=== PATIENT | female | born 1945 | race Caucasian/White ===

== ENCOUNTER 2017-09-09 11:46 | Inpatient (IN) | payer MEDICARE, OTHER ==
[2017-09-09] MEDS ORDERED: Albuterol/Ipratropium 3.0-0.5 MG/3 ML Neb Soln NEB ONE ×2 (11:49→11:53)
--- NOTE | 2017-09-09 11:56 | EDM.PDOC ---
ED HPI GENERAL MEDICAL PROBLEM - General Stated Complaint: AMB Time Seen by Provider: 09/09/17 11:50 Source of Information: Reports: Patient, EMS History Limitations: Reports: No Limitations - History of Present Illness INITIAL COMMENTS - FREE TEXT/NARRATIVE: HISTORY AND PHYSICAL: History of present illness: Yu is a 72-year-old female presents via EMS with complaint of shortness of breath since this morning. Patient has had intermittent nausea. Patient was recently in my months for a routine follow-up and had a malfunctioning pacemaker that required readjusting the settings. She states she has been staying with her daughter while she has been recovering. Denies fever chills or chest pain. Patient denies vomiting, diarrhea, abdominal pain, constipation. Past medical history significant for hypertension diabetes currently vascular disease on a pacemaker. Review of systems: As per history of present illness and below otherwise all systems reviewed and negative. Past medical history: As per history of present illness and as reviewed below otherwise noncontributory. Surgical history: As per history of present illness and as reviewed below otherwise noncontributory. Social history: No reported history of drug or alcohol abuse. Family history: As per history of present illness and as reviewed below otherwise noncontributory. Physical exam: General: Well-developed, well-nourished 72-year-old female. Patient is alert and oriented. Nontoxic appearing and in no acute distress. HEENT: Atraumatic, normocephalic, pupils reactive, negative for conjunctival pallor or scleral icterus, mucous membranes moist, throat clear, neck supple, nontender, trachea midline. Lungs: Clear to auscultation, breath sounds equal bilaterally, chest nontender. Heart: S1S2, regular, negative for clicks, rubs, or JVD. Abdomen: Soft, nondistended, nontender. Negative for masses or hepatosplenomegaly. Negative for costovertebral tenderness. Pelvis: Stable nontender. Genitourinary: Deferred. Rectal: Deferred. Extremities: Atraumatic, negative for cords or calf pain. Neurovascular unremarkable. Neuro: Awake, alert, oriented. Cranial nerves II through XII unremarkable. Cerebellum unremarkable. Motor and sensory unremarkable throughout. Exam nonfocal. Notes: Patient arrived alert and oriented via EMS. We will do a cardiac workup due to patient's past medical history. Patient complains of a painful pressure sore. The right gluteus erythematous, she does have a small 1 cm open sore. She has some yellow discharge noted on the pad that appears to be coming from the sore. We'll bring this to Dr. Tobar' s attention. D-dimer is elevated, patient is currently anticoagulated on Eliquis. Discussed with Dr. Tobar about admission, he is agreeable. He is aware that d-dimer is elevated, CTA is being held due to her creatinine and coagulation status. Patient is aware and agreeable. Diagnostics: []CBC, CMP, troponin, d-dimer, BNP, EKG, chest x-ray Therapeutics: [Saline lock and DuoNeb] Impression: CHF exacerbation. Plan: [Observation admission with telemetry to [facility]] Definitive disposition and diagnosis as appropriate pending reevaluation and review of above. Onset: Today Onset Date: 09/09/17 Duration: Hour(s): Location: Reports: Chest - Related Data Allergies Allergy/AdvReac Type Severity Reaction Status Date / Time No Known Allergies Allergy Verified 09/09/17 12:09 Home Meds: Home Meds Acetaminophen [Tylenol Extra Strength] 1,000 mg PO Q6H PRN 09/09/17 [History] Amiodarone [Cordarone] 200 mg PO DAILY 09/09/17 [History] Apixaban [Eliquis] 5 mg PO BID 09/09/17 [History] Bumetanide [Bumex] 2 mg PO BID 09/09/17 [History] Bumetanide [Bumex] 2 mg PO DAILY PRN 09/09/17 [History] Insulin Aspart [Novolog Flexpen] 5 unit SUBCUT TIDMEALS 09/09/17 [History] Insulin Detemir [Levemir Flextouch] 10 unit SUBCUT BEDTIME 09/09/17 [History] Metoprolol Succinate [Toprol XL 50mg] 50 mg PO DAILY 09/09/17 [History] Mexiletine 200 mg PO BID 09/09/17 [History] Nitroglycerin 0.4 mg SL .EVERY 5 MINUTES PRN MDD 3 09/09/17 [History] Spironolactone [Aldactone] 12.5 mg PO DAILY 09/09/17 [History] atorvaSTATin [Lipitor] 40 mg PO BEDTIME 09/09/17 [History] ED ROS GENERAL - Review of Systems Review Of Systems: ROS reveals no pertinent complaints other than HPI. ED EXAM, GENERAL - Physical Exam Exam: See Below (See dictation) EKG INTERPRETATION EKG Date: 09/09/17 Time: 11:51 Rhythm: Other (Ventricular paced rhythm) Comparison: NA - No Prior EKG Course - Vital Signs Last Recorded V/S: Last Vital Signs Temp 35.9 C 09/09/17 11:50 Pulse 91 09/09/17 11:50 Resp 16 09/09/17 11:50 BP 109/65 09/09/17 11:50 Pulse Ox 100 09/09/17 11:50 - Orders/Labs/Meds Orders: Active Orders 24 hr Category Date Time Status Admission Status [Patient Status] [ADT] Stat ADT 09/09/17 12:41 Ordered EKG Documentation Completion [RC] STAT Care 09/09/17 11:48 Active RT Aerosol Therapy [RC] ASDIRECTED Care 09/09/17 11:49 Active RT Aerosol Therapy [RC] ASDIRECTED Care 09/09/17 11:53 Inactive Chest 1V Frontal [CR] Stat Exams 09/09/17 11:49 Taken Lung Vent & Perf Quantative [NM] Stat Exams 09/09/17 12:31 Ordered Labs: Laboratory Tests 09/09/17 09/09/17 09/09/17 Range/Units 11:50 11:50 11:50 WBC 10.10 (4.0-11.0) K/uL RBC 5.88 (4.30-5.90) M/uL Hgb 14.4 (12.0-16.0) g/dL Hct 45.0 (36.0-46.0) % MCV 76.5 L (80.0-98.0) fL MCH 24.5 L (27.0-32.0) pg MCHC 32.0 (31.0-37.0) g/dL RDW Std Deviation 55.2 (28.0-62.0) fl RDW Coeff of Lata 21 H (11.0-15.0) % Plt Count 265 (150-400) K/uL MPV 9.90 (7.40-12.00) fL Neut % (Auto) 72.6 (48.0-80.0) % Lymph % (Auto) 15.6 L (16.0-40.0) % [place] % (Auto) 11.0 (0.0-15.0) % Eos % (Auto) 0.6 (0.0-7.0) % Baso % (Auto) 0.2 (0.0-1.5) % Neut # (Auto) 7.3 H (1.4-5.7) K/uL Lymph # (Auto) 1.6 (0.6-2.4) K/uL [place] # (Auto) 1.1 H (0.0-0.8) K/uL Eos # (Auto) 0.1 (0.0-0.7) K/uL Baso # (Auto) 0.0 (0.0-0.1) K/uL Nucleated RBC % 0.0 /100WBC Nucleated RBCs # 0 K/uL D-Dimer, Quantitative 1.11 H (0.0-0.52) mg/LFEU Sodium 140 (136-145) mmol/L Potassium 3.3 L (3.5-5.1) mmol/L Chloride 100 (98-107) mmol/L Carbon Dioxide 21.5 (21.0-32.0) mmol/L BUN 58 H (7.0-18.0) mg/dL Creatinine 3.5 H (0.6-1.0) mg/dL Est Cr Clr Drug Dosing 13.46 mL/min Estimated GFR (MDRD) 12.9 ml/min Glucose 94 (74-106) mg/dL Calcium 9.2 (8.5-10.1) mg/dL Total Bilirubin 0.8 (0.2-1.0) mg/dL AST 38 H (15-37) IU/L ALT 42 (14-63) IU/L Alkaline Phosphatase 87 (46-116) U/L Troponin I < 0.050 (0.000-0.056) ng/mL B-Natriuretic Peptide (<100) PG/ML Total Protein 6.7 (6.4-8.2) g/dL Albumin 3.1 L (3.4-5.0) g/dL Globulin 3.6 H (2.0-3.5) g/dL Albumin/Globulin Ratio 0.9 L (1.3-2.8) 09/09/17 Range/Units 11:50 WBC (4.0-11.0) K/uL RBC (4.30-5.90) M/uL Hgb (12.0-16.0) g/dL Hct (36.0-46.0) % MCV (80.0-98.0) fL MCH (27.0-32.0) pg MCHC (31.0-37.0) g/dL RDW Std Deviation (28.0-62.0) fl RDW Coeff of Lata (11.0-15.0) % Plt Count (150-400) K/uL MPV (7.40-12.00) fL Neut % (Auto) (48.0-80.0) % Lymph % (Auto) (16.0-40.0) % [place] % (Auto) (0.0-15.0) % Eos % (Auto) (0.0-7.0) % Baso % (Auto) (0.0-1.5) % Neut # (Auto) (1.4-5.7) K/uL Lymph # (Auto) (0.6-2.4) K/uL [place] # (Auto) (0.0-0.8) K/uL Eos # (Auto) (0.0-0.7) K/uL Baso # (Auto) (0.0-0.1) K/uL Nucleated RBC % /100WBC Nucleated RBCs # K/uL D-Dimer, Quantitative (0.0-0.52) mg/LFEU Sodium (136-145) mmol/L Potassium (3.5-5.1) mmol/L Chloride (98-107) mmol/L Carbon Dioxide (21.0-32.0) mmol/L BUN (7.0-18.0) mg/dL Creatinine (0.6-1.0) mg/dL Est Cr Clr Drug Dosing mL/min Estimated GFR (MDRD) ml/min Glucose (74-106) mg/dL Calcium (8.5-10.1) mg/dL Total Bilirubin (0.2-1.0) mg/dL AST (15-37) IU/L ALT (14-63) IU/L Alkaline Phosphatase (46-116) U/L Troponin I (0.000-0.056) ng/mL B-Natriuretic Peptide 2371 H (<100) PG/ML Total Protein (6.4-8.2) g/dL Albumin (3.4-5.0) g/dL Globulin (2.0-3.5) g/dL Albumin/Globulin Ratio (1.3-2.8) Meds: Medications Discontinued Medications Generic Name Dose Route Start Last Admin Trade Name Freq PRN Reason Stop Dose Admin Albuterol/Ipratropium 3 ml 09/09/17 11:49 09/09/17 12:16 Duoneb 3.0-0.5 Mg/3 Ml NEB 09/09/17 11:50 3 ml ONETIME ONE Administration Albuterol/Ipratropium 3 ml 09/09/17 11:53 09/09/17 12:40 Duoneb 3.0-0.5 Mg/3 Ml NEB 09/09/17 11:54 Not Given ONETIME ONE Departure - Departure Time of Disposition: 12:45 Disposition: Refer to Observation Clinical Impression: Congestive heart failure Qualifiers: Heart failure type: unspecified Heart failure chronicity: chronic Qualified Code(s): I50.9 - Heart failure, unspecified Referrals: PCP,None [Primary Care Provider] - - My Orders Last 24 Hours: My Active Orders 09/09/17 11:48 EKG Documentation Completion [RC] STAT 09/09/17 11:49 RT Aerosol Therapy [RC] ASDIRECTED Chest 1V Frontal [CR] Stat 09/09/17 12:31 Lung Vent & Perf Quantative [NM] Stat 09/09/17 12:41 Admission Status [Patient Status] [ADT] Stat - Assessment/Plan Last 24 Hours: My Active Orders 09/09/17 11:48 EKG Documentation Completion [RC] STAT 09/09/17 11:49 RT Aerosol Therapy [RC] ASDIRECTED Chest 1V Frontal [CR] Stat 09/09/17 12:31 Lung Vent & Perf Quantative [NM] Stat 09/09/17 12:41 Admission Status [Patient Status] [ADT] Stat
[2017-09-09 12:22] LABS: CHLORIDE,CL 100 mmol/L (98-107); SODIUM,NA 140 mmol/L (136-145)
[2017-09-09] MEDS ORDERED: Furosemide 40 MG/4 ML VIAL IVPUSH ONE (13:23)
[2017-09-09] MEDS ORDERED: Albuterol/Ipratropium 3.0-0.5 MG/3 ML Neb Soln NEB PRN (13:23)
[2017-09-09] MEDS ORDERED: Acetaminophen 325 MG Tab PO PRN (13:23)
[2017-09-09] MEDS ORDERED: Ondansetron 4 MG/2 ML SDV IVPUSH PRN (13:23)
--- NOTE | 2017-09-09 13:33 | PCM.HP ---
H&P History of Present Illness - General Admit Problem/Dx: Admission Diagnosis/Problem Admission Diagnosis/Problem Congestive heart failure - History of Present Illness Initial Comments - Free Text/Narative: 72 yo female with pmh of atrial fibrillation, CHF, CAD, with recent placement of pace/defibrillator who presents with several day history of shortness of breath. She reports she gets short of breath walking to the bathroom. She reports increased leg edema. She denies any fevers or chills. She denies any chest pain. - Related Data Allergies/Adverse Reactions: Allergies Allergy/AdvReac Type Severity Reaction Status Date / Time No Known Allergies Allergy Verified 09/09/17 12:09 Home Medications: Home Meds Acetaminophen [Tylenol Extra Strength] 1,000 mg PO Q6H PRN 09/09/17 [History] Amiodarone [Cordarone] 200 mg PO DAILY 09/09/17 [History] Apixaban [Eliquis] 5 mg PO BID 09/09/17 [History] Bumetanide [Bumex] 2 mg PO BID 09/09/17 [History] Bumetanide [Bumex] 2 mg PO DAILY PRN 09/09/17 [History] Insulin Aspart [Novolog Flexpen] 5 unit SUBCUT TIDMEALS 09/09/17 [History] Insulin Detemir [Levemir Flextouch] 10 unit SUBCUT BEDTIME 09/09/17 [History] Metoprolol Succinate [Toprol XL 50mg] 50 mg PO DAILY 09/09/17 [History] Mexiletine 200 mg PO BID 09/09/17 [History] Nitroglycerin 0.4 mg SL .EVERY 5 MINUTES PRN MDD 3 09/09/17 [History] Spironolactone [Aldactone] 12.5 mg PO DAILY 09/09/17 [History] atorvaSTATin [Lipitor] 40 mg PO BEDTIME 09/09/17 [History] Past Medical History Cardiovascular History: Reports: Heart Failure [employer] History: Reports: Psychiatric History: Reports: Anxiety Endocrine/Metabolic History: Reports: Diabetes, Type II Dermatologic History: Reports: Other (See Below) Other Dermatologic History: sore to bottom, painful to sit - Past Surgical History Cardiovascular Surgical History: Reports: Carotid Stents GI Surgical History: Reports: Cholecystectomy Social & Family History - Family History Family Medical History: Noncontributory Endocrine/Metabolic: Reports: Diabetes, type II Other Endocrine/Metabolic Family History: pt states mother had diabetes - Tobacco Use Smoking Status *Q: Never Smoker Second Hand Smoke Exposure: No - Caffeine Use Caffeine Use: Reports: None - Recreational Drug Use Recreational Drug Use: No H&P Review of Systems - Review of Systems: Review Of Systems: ROS reveals no pertinent complaints other than HPI. Exam - Exam Exam: See Below - Vital Signs Vital Signs: Last Vital Signs Temp 35.9 C 09/09/17 11:50 Pulse 91 09/09/17 11:50 Resp 16 09/09/17 11:50 BP 109/65 09/09/17 11:50 Pulse Ox 100 09/09/17 11:50 Weight: 112.037 kg - Exam General: Alert, Oriented Neck: Supple Lungs: Clear to Auscultation, Normal Respiratory Effort Cardiovascular: Regular Rate, Regular Rhythm GI/Abdominal Exam: Soft, Non-Tender Extremities: Pedal Edema (+2) Skin: Warm, Dry, Intact - Patient Data Lab Results Last 24 hrs: Laboratory Results - last 24 hr 09/09/17 09/09/17 09/09/17 Range/Units 11:50 11:50 11:50 WBC 10.10 (4.0-11.0) K/uL RBC 5.88 (4.30-5.90) M/uL Hgb 14.4 (12.0-16.0) g/dL Hct 45.0 (36.0-46.0) % MCV 76.5 L (80.0-98.0) fL MCH 24.5 L (27.0-32.0) pg MCHC 32.0 (31.0-37.0) g/dL RDW Std Deviation 55.2 (28.0-62.0) fl RDW Coeff of Lata 21 H (11.0-15.0) % Plt Count 265 (150-400) K/uL MPV 9.90 (7.40-12.00) fL Neut % (Auto) 72.6 (48.0-80.0) % Lymph % (Auto) 15.6 L (16.0-40.0) % [place] % (Auto) 11.0 (0.0-15.0) % Eos % (Auto) 0.6 (0.0-7.0) % Baso % (Auto) 0.2 (0.0-1.5) % Neut # (Auto) 7.3 H (1.4-5.7) K/uL Lymph # (Auto) 1.6 (0.6-2.4) K/uL [place] # (Auto) 1.1 H (0.0-0.8) K/uL Eos # (Auto) 0.1 (0.0-0.7) K/uL Baso # (Auto) 0.0 (0.0-0.1) K/uL Nucleated RBC % 0.0 /100WBC Nucleated RBCs # 0 K/uL D-Dimer, Quantitative 1.11 H (0.0-0.52) mg/LFEU Sodium 140 (136-145) mmol/L Potassium 3.3 L (3.5-5.1) mmol/L Chloride 100 (98-107) mmol/L Carbon Dioxide 21.5 (21.0-32.0) mmol/L BUN 58 H (7.0-18.0) mg/dL Creatinine 3.5 H (0.6-1.0) mg/dL Est Cr Clr Drug Dosing 13.46 mL/min Estimated GFR (MDRD) 12.9 ml/min Glucose 94 (74-106) mg/dL Calcium 9.2 (8.5-10.1) mg/dL Total Bilirubin 0.8 (0.2-1.0) mg/dL AST 38 H (15-37) IU/L ALT 42 (14-63) IU/L Alkaline Phosphatase 87 (46-116) U/L Troponin I < 0.050 (0.000-0.056) ng/mL B-Natriuretic Peptide (<100) PG/ML Total Protein 6.7 (6.4-8.2) g/dL Albumin 3.1 L (3.4-5.0) g/dL Globulin 3.6 H (2.0-3.5) g/dL Albumin/Globulin Ratio 0.9 L (1.3-2.8) 09/09/17 Range/Units 11:50 WBC (4.0-11.0) K/uL RBC (4.30-5.90) M/uL Hgb (12.0-16.0) g/dL Hct (36.0-46.0) % MCV (80.0-98.0) fL MCH (27.0-32.0) pg MCHC (31.0-37.0) g/dL RDW Std Deviation (28.0-62.0) fl RDW Coeff of Lata (11.0-15.0) % Plt Count (150-400) K/uL MPV (7.40-12.00) fL Neut % (Auto) (48.0-80.0) % Lymph % (Auto) (16.0-40.0) % [place] % (Auto) (0.0-15.0) % Eos % (Auto) (0.0-7.0) % Baso % (Auto) (0.0-1.5) % Neut # (Auto) (1.4-5.7) K/uL Lymph # (Auto) (0.6-2.4) K/uL [place] # (Auto) (0.0-0.8) K/uL Eos # (Auto) (0.0-0.7) K/uL Baso # (Auto) (0.0-0.1) K/uL Nucleated RBC % /100WBC Nucleated RBCs # K/uL D-Dimer, Quantitative (0.0-0.52) mg/LFEU Sodium (136-145) mmol/L Potassium (3.5-5.1) mmol/L Chloride (98-107) mmol/L Carbon Dioxide (21.0-32.0) mmol/L BUN (7.0-18.0) mg/dL Creatinine (0.6-1.0) mg/dL Est Cr Clr Drug Dosing mL/min Estimated GFR (MDRD) ml/min Glucose (74-106) mg/dL Calcium (8.5-10.1) mg/dL Total Bilirubin (0.2-1.0) mg/dL AST (15-37) IU/L ALT (14-63) IU/L Alkaline Phosphatase (46-116) U/L Troponin I (0.000-0.056) ng/mL B-Natriuretic Peptide 2371 H (<100) PG/ML Total Protein (6.4-8.2) g/dL Albumin (3.4-5.0) g/dL Globulin (2.0-3.5) g/dL Albumin/Globulin Ratio (1.3-2.8) Result Diagrams: 09/10/17 05:39 09/10/17 05:39 Problem List Initiated/Reviewed/Updated: Yes Orders Last 24hrs: Active Orders 24 hr Category Date Time Status Admission Status [Patient Status] [ADT] Stat ADT 09/09/17 12:41 Active EKG Documentation Completion [RC] STAT Care 09/09/17 11:48 Active Oxygen Therapy [RC] PRN Care 09/09/17 13:24 Ordered RT Aerosol Therapy [RC] ASDIRECTED Care 09/09/17 11:49 Active RT Aerosol Therapy [RC] ASDIRECTED Care 09/09/17 11:53 Inactive RT Aerosol Therapy [RC] ASDIRECTED Care 09/09/17 13:25 Ordered Up ad Charo [RC] ASDIRECTED Care 09/09/17 13:23 Ordered VTE/DVT Education [RC] PER UNIT ROUTINE Care 09/09/17 13:24 Ordered Vital Signs [RC] Q4H Care 09/09/17 13:24 Ordered [employer] Diet [DIET] Diet 09/09/17 Breakfast Ordered Chest 1V Frontal [CR] Stat Exams 09/09/17 11:49 Taken Lung Vent & Perf Quantative [NM] Stat Exams 09/09/17 12:31 Stop Req BASIC METABOLIC PANEL,BMP [CHEM] AM Lab 09/10/17 05:11 Ordered BASIC METABOLIC PANEL,BMP [CHEM] AM Lab 09/11/17 05:11 Ordered CBC WITH AUTO DIFF [HEME] AM Lab 09/10/17 05:11 Ordered CBC WITH AUTO DIFF [HEME] AM Lab 09/11/17 05:11 Ordered Acetaminophen [Tylenol] Med 09/09/17 13:23 Ordered 650 mg PO Q4H PRN Albuterol/Ipratropium [DuoNeb 3.0-0.5 MG/3 ML] Med 09/09/17 13:23 Ordered 3 ml NEB Q4HRRT PRN Amiodarone [Cordarone] Med 09/10/17 09:00 Ordered 200 mg PO DAILY Apixaban [Eliquis] Med 09/09/17 21:00 Ordered 5 mg PO BID Insulin Aspart [NovoLOG] Med 09/09/17 17:30 Ordered 5 unit SUBCUT TIDMEALS Insulin Detemir [Levemir] Med 09/09/17 21:00 Ordered 10 unit SUBCUT BEDTIME Metoprolol Succinate [Toprol XL] Med 09/10/17 09:00 Ordered 50 mg PO DAILY Mexiletine [Mexiletine] Med 09/09/17 21:00 Ordered 200 mg PO BID Ondansetron [Zofran] Med 09/09/17 13:23 Ordered 4 mg IVPUSH Q4H PRN Spironolactone [Aldactone] Med 09/10/17 09:00 Ordered 12.5 mg PO DAILY atorvaSTATin [Lipitor] Med 09/09/17 21:00 Ordered 40 mg PO BEDTIME Sequential Compression Device [OM.PC] Per Unit Routine Oth 09/09/17 13:24 Ordered Resuscitation Status Routine Resus Stat 09/09/17 13:23 Ordered Medication Orders Acetaminophen (Tylenol) 650 mg PO Q4H PRN PRN Reason: Pain (Mild 1-3)/fever Albuterol/Ipratropium (Duoneb 3.0-0.5 Mg/3 Ml) 3 ml NEB Q4HRRT PRN PRN Reason: Shortness Of Breath/wheezing Amiodarone HCl (Cordarone) 200 mg PO DAILY [facility] Apixaban (Eliquis) 5 mg PO BID [facility] Atorvastatin Calcium (Lipitor) 40 mg PO BEDTIME [facility] Insulin Aspart (Novolog) 5 unit SUBCUT TIDMEALS [facility] Insulin Detemir (Levemir) 10 unit SUBCUT BEDTIME [facility] Metoprolol Succinate (Toprol Xl) 50 mg PO DAILY [facility] Non-Formulary Medication (Mexiletine [Mexiletine]) 200 mg PO BID [facility] Ondansetron HCl (Zofran) 4 mg IVPUSH Q4H PRN PRN Reason: Nausea Spironolactone (Aldactone) 12.5 mg PO DAILY [facility] Assessment/Plan Comment:: 72 yo female admitted for CHF exacerbation CHF exacerbation: will diures with IV lasix CKD: will contiue to monitor a.fib: rate controlled, will continue antiarrythmics and eliquis
[2017-09-09] MEDS ORDERED: Hydrocolloid Dressing 4x4 Bandage TOP ONE (17:12)
[2017-09-09] MEDS: Insulin Aspart 100 Units/ML 3 ML Pen SUBCUT SCH (17:43)
[2017-09-09] MEDS: atorvaSTATin 40 MG Tab PO SCH (20:34)
[2017-09-09] MEDS: Apixaban 5 MG Tab PO SCH (20:34)
[2017-09-09] MEDS: Insulin Detemir 100 Units/ML 3 ML Pen SUBCUT SCH (20:46)
[2017-09-09] MEDS: MEXILITINE PO SCH (21:25)
[2017-09-10] MEDS: Insulin Aspart 100 Units/ML 3 ML Pen SUBCUT SCH ×3 (07:32→16:46)
[2017-09-10] MEDS: Amiodarone 200 MG Tab PO SCH (08:40)
[2017-09-10] MEDS: Apixaban 5 MG Tab PO SCH ×2 (08:40→21:16)
[2017-09-10] MEDS: MEXILITINE PO SCH ×2 (09:21→21:46)
[2017-09-10] MEDS: Spironolactone 25 MG Tab PO SCH (10:24)
[2017-09-10] MEDS: Metoprolol Succinate 50 MG Tab.ER PO SCH (10:27)
[2017-09-10] MEDS ORDERED: Furosemide 40 MG/4 ML VIAL IVPUSH ONE (14:11)
--- NOTE | 2017-09-10 14:14 | PCM.PN ---
- Review of Systems Systems Review Comment:: edema of legs improving, shortness of breath improving, reports anxiety - Patient Data Vitals - Most Recent: Last Vital Signs Temp 35.8 C 09/10/17 12:00 Pulse 90 09/10/17 12:00 Resp 18 09/10/17 12:00 BP 95/57 L 09/10/17 12:00 Pulse Ox 97 09/10/17 12:00 Weight - Most Recent: 112.037 kg I&O - Last 24 Hours: Intake & Output 09/09/17 09/10/17 09/10/17 22:59 06:59 14:59 Intake Total 300 Balance 300 Lab Results Last 24 Hours: Laboratory Results - last 24 hr 09/09/17 09/09/17 09/10/17 Range/Units 16:02 20:37 05:39 WBC 7.27 (4.0-11.0) K/uL RBC 5.31 (4.30-5.90) M/uL Hgb 12.7 (12.0-16.0) g/dL Hct 41.0 (36.0-46.0) % MCV 77.2 L (80.0-98.0) fL MCH 23.9 L (27.0-32.0) pg MCHC 31.0 (31.0-37.0) g/dL RDW Std Deviation 56.4 (28.0-62.0) fl RDW Coeff of Lata 21 H (11.0-15.0) % Plt Count 229 (150-400) K/uL MPV 10.00 (7.40-12.00) fL Neut % (Auto) 70.4 (48.0-80.0) % Lymph % (Auto) 17.6 (16.0-40.0) % [place] % (Auto) 10.0 (0.0-15.0) % Eos % (Auto) 1.7 (0.0-7.0) % Baso % (Auto) 0.3 (0.0-1.5) % Neut # (Auto) 5.1 (1.4-5.7) K/uL Lymph # (Auto) 1.3 (0.6-2.4) K/uL [place] # (Auto) 0.7 (0.0-0.8) K/uL Eos # (Auto) 0.1 (0.0-0.7) K/uL Baso # (Auto) 0.0 (0.0-0.1) K/uL Nucleated RBC % 0.0 /100WBC Nucleated RBCs # 0 K/uL Sodium (136-145) mmol/L Potassium (3.5-5.1) mmol/L Chloride (98-107) mmol/L Carbon Dioxide (21.0-32.0) mmol/L BUN (7.0-18.0) mg/dL Creatinine (0.6-1.0) mg/dL Est Cr Clr Drug Dosing mL/min Estimated GFR (MDRD) ml/min Glucose (74-106) mg/dL POC Glucose 92 152 H (60-110) mg/dL Calcium (8.5-10.1) mg/dL 09/10/17 09/10/17 Range/Units 05:39 07:28 WBC (4.0-11.0) K/uL RBC (4.30-5.90) M/uL Hgb (12.0-16.0) g/dL Hct (36.0-46.0) % MCV (80.0-98.0) fL MCH (27.0-32.0) pg MCHC (31.0-37.0) g/dL RDW Std Deviation (28.0-62.0) fl RDW Coeff of Lata (11.0-15.0) % Plt Count (150-400) K/uL MPV (7.40-12.00) fL Neut % (Auto) (48.0-80.0) % Lymph % (Auto) (16.0-40.0) % [place] % (Auto) (0.0-15.0) % Eos % (Auto) (0.0-7.0) % Baso % (Auto) (0.0-1.5) % Neut # (Auto) (1.4-5.7) K/uL Lymph # (Auto) (0.6-2.4) K/uL [place] # (Auto) (0.0-0.8) K/uL Eos # (Auto) (0.0-0.7) K/uL Baso # (Auto) (0.0-0.1) K/uL Nucleated RBC % /100WBC Nucleated RBCs # K/uL Sodium 139 (136-145) mmol/L Potassium 3.2 L (3.5-5.1) mmol/L Chloride 100 (98-107) mmol/L Carbon Dioxide 26.7 (21.0-32.0) mmol/L BUN 58 H (7.0-18.0) mg/dL Creatinine 3.1 H (0.6-1.0) mg/dL Est Cr Clr Drug Dosing 15.19 mL/min Estimated GFR (MDRD) 14.9 ml/min Glucose 124 H (74-106) mg/dL POC Glucose 117 H (60-110) mg/dL Calcium 9.1 (8.5-10.1) mg/dL Med Orders - Current: Current Medications Acetaminophen (Tylenol) 650 mg PO Q4H PRN PRN Reason: Pain (Mild 1-3)/fever Albuterol/Ipratropium (Duoneb 3.0-0.5 Mg/3 Ml) 3 ml NEB Q4HRRT PRN PRN Reason: Shortness Of Breath/wheezing Amiodarone HCl (Cordarone) 200 mg PO DAILY [facility] Last Admin: 09/10/17 08:40 Dose: 200 mg Apixaban (Eliquis) 5 mg PO BID [facility] Last Admin: 09/10/17 08:40 Dose: 5 mg Atorvastatin Calcium (Lipitor) 40 mg PO BEDTIME [facility] Last Admin: 09/09/17 20:34 Dose: 40 mg Fluoxetine HCl (Prozac) 10 mg PO DAILY [facility] Last Admin: 09/10/17 11:44 Dose: 10 mg Furosemide (Lasix) 60 mg IVPUSH NOW ONE Stop: 09/10/17 14:12 Insulin Aspart (Novolog) 5 unit SUBCUT TIDMEALS [facility] Last Admin: 09/10/17 12:26 Dose: 5 units Insulin Detemir (Levemir) 10 unit SUBCUT BEDTIME [facility] Last Admin: 09/09/17 20:46 Dose: 10 units Metoprolol Succinate (Toprol Xl) 50 mg PO DAILY [facility] Last Admin: 09/10/17 10:27 Dose: 50 mg Ondansetron HCl (Zofran) 4 mg IVPUSH Q4H PRN PRN Reason: Nausea Mexilitine 200 Mg 200 each PO BID [facility] Last Admin: 09/10/17 09:21 Dose: Not Given Spironolactone (Aldactone) 12.5 mg PO DAILY [facility] Last Admin: 09/10/17 10:24 Dose: 12.5 mg Discontinued Medications Albuterol/Ipratropium (Duoneb 3.0-0.5 Mg/3 Ml) 3 ml NEB ONETIME ONE Stop: 09/09/17 11:50 Last Admin: 09/09/17 12:16 Dose: 3 ml Albuterol/Ipratropium (Duoneb 3.0-0.5 Mg/3 Ml) 3 ml NEB ONETIME ONE Stop: 09/09/17 11:54 Last Admin: 09/09/17 12:40 Dose: Not Given Furosemide (Lasix) 60 mg IVPUSH NOW ONE Stop: 09/09/17 13:24 Last Admin: 09/09/17 14:18 Dose: 60 mg Wound Care/Dressing Products (Duoderm Cgf) 1 each TOP ASDIRECTED ONE Stop: 09/09/17 17:13 Last Admin: 09/09/17 17:36 Dose: 1 each - Exam General: Alert, Oriented Lungs: Clear to Auscultation, Normal Respiratory Effort Cardiovascular: Regular Rate, Regular Rhythm GI/Abdominal Exam: Normal Bowel Sounds, Soft, Non-Tender Extremities: Pedal Edema (+2) Skin: Warm, Dry, Intact Neurological: No New Focal Deficit - Problem List Review Problem List Initiated/Reviewed/Updated: Yes - My Orders Last 24 Hours: My Active Orders 09/09/17 13:23 Up ad Charo [RC] ASDIRECTED Acetaminophen [Tylenol] 650 mg PO Q4H PRN Albuterol/Ipratropium [DuoNeb 3.0-0.5 MG/3 ML] 3 ml NEB Q4HRRT PRN Ondansetron [Zofran] 4 mg IVPUSH Q4H PRN Resuscitation Status Routine 09/09/17 13:24 Oxygen Therapy [RC] PRN Vital Signs [RC] Q4H Sequential Compression Device [OM.PC] Per Unit Routine 09/09/17 13:25 RT Aerosol Therapy [RC] ASDIRECTED 09/09/17 13:33 Telemetry Monitoring [Cardiac Monitoring] [RC] Q8H 09/09/17 13:34 Echo 2D wo Cont [US] Routine 09/09/17 17:30 Insulin Aspart [NovoLOG] 5 unit SUBCUT TIDMEALS 09/09/17 21:00 Apixaban [Eliquis] 5 mg PO BID Insulin Detemir [Levemir] 10 unit SUBCUT BEDTIME Patient's Own Medication [Ptom] 200 each PO BID atorvaSTATin [Lipitor] 40 mg PO BEDTIME 09/10/17 09:00 Amiodarone [Cordarone] 200 mg PO DAILY Metoprolol Succinate [Toprol XL] 50 mg PO DAILY Spironolactone [Aldactone] 12.5 mg PO DAILY 09/10/17 11:30 FLUoxetine [PROzac] 10 mg PO DAILY 09/10/17 14:11 Furosemide [Lasix] 60 mg IVPUSH NOW ONE 09/11/17 05:11 BASIC METABOLIC PANEL,BMP [CHEM] AM CBC WITH AUTO DIFF [HEME] AM - Plan Plan:: 72 yo female admitted for CHF exacerbation CHF exacerbation: will give another 60mg IV lasix today CKD: creatinine has improved with diuresis a.fib: rate controlled, will continue antiarrythmics and eliquis dispo: anticipate discharge home tomorrow
[2017-09-10] MEDS: Insulin Detemir 100 Units/ML 3 ML Pen SUBCUT SCH (21:16)
[2017-09-10] MEDS: atorvaSTATin 40 MG Tab PO SCH (21:16)
[2017-09-11] MEDS: Insulin Aspart 100 Units/ML 3 ML Pen SUBCUT SCH ×3 (07:00→16:52)
[2017-09-11] MEDS: Spironolactone 25 MG Tab PO SCH (08:57)
[2017-09-11] MEDS: Amiodarone 200 MG Tab PO SCH (08:57)
[2017-09-11] MEDS: Metoprolol Succinate 50 MG Tab.ER PO SCH (08:57)
[2017-09-11] MEDS: Apixaban 5 MG Tab PO SCH ×2 (08:57→21:01)
[2017-09-11] MEDS: MEXILITINE PO SCH ×2 (08:58→21:19)
[2017-09-11] MEDS ORDERED: LORazepam 2 MG/ML SDV IVPUSH ONE (10:00)
[2017-09-11] MEDS ORDERED: Furosemide 40 MG/4 ML VIAL IVPUSH ONE ×2 (10:05→19:51)
[2017-09-11] MEDS: Potassium Chloride 20 MEQ Tab.ER PO SCH ×3 (10:17→11:21)
--- NOTE | 2017-09-11 11:09 | CR ---
EXAM DATE: 09/09/17 PATIENT'S AGE: 72 Patient: MOODY OMAHA Facility: [place], [place] Site . Site : 1945 Study: XRay Chest [id number] 12:16:21 PM Ordering Physician: Doctor Walter Final Report: Shortnessof breath portable chest. FINDINGS: Enlargement of the cardiac silhouette. Left cardiac pacer. Lungs are clear. No acute airspace or interstitial process. IMPRESSION: 1. Cardiomegaly. No acute pulmonary process. Dictated by Latoya Yañez MD @ Sep 09 2017 12:33PM (Electronic Signature) Report Signed by Proxy. FABIO
[2017-09-11] MEDS ORDERED: Potassium Chloride 20 MEQ Tab.ER PO SCH (11:45)
[2017-09-11] MEDS ORDERED: Potassium Chloride 10% 20 MEQ/15 ML Soln 30 ML UD Cup PO SCH (12:15)
[2017-09-11] MEDS: Potassium Chloride 10% 20 MEQ/15 ML Soln 30 ML UD Cup PO SCH ×2 (12:23→21:00)
--- NOTE | 2017-09-11 16:01 | PCM.PN ---
- General Info Date of Service: 09/11/17 Subjective Update: Pt appears to be anxious when assessed in the morning. Patient feels that her legs are getting bigger, she states that she was a bit dizzy when getting up this morning. Denies shortness of breath. - Review of Systems General: Reports: Weakness, Fatigue Neurological: Reports: Dizziness Psychiatric: Reports: Anxiety - Patient Data Vitals - Most Recent: Last Vital Signs Temp 35.9 C 09/11/17 07:46 Pulse 90 09/11/17 08:57 Resp 20 09/11/17 07:46 BP 104/66 09/11/17 08:57 Pulse Ox 98 09/11/17 07:46 Weight - Most Recent: 111.947 kg I&O - Last 24 Hours: Intake & Output 09/11/17 09/11/17 09/11/17 06:59 14:59 22:59 Intake Total 600 Output Total 400 Balance 200 Lab Results Last 24 Hours: Laboratory Results - last 24 hr 09/10/17 09/10/17 09/10/17 Range/Units 11:52 15:57 21:12 WBC (4.0-11.0) K/uL RBC (4.30-5.90) M/uL Hgb (12.0-16.0) g/dL Hct (36.0-46.0) % MCV (80.0-98.0) fL MCH (27.0-32.0) pg MCHC (31.0-37.0) g/dL RDW Std Deviation (28.0-62.0) fl RDW Coeff of Lata (11.0-15.0) % Plt Count (150-400) K/uL MPV (7.40-12.00) fL Neut % (Auto) (48.0-80.0) % Lymph % (Auto) (16.0-40.0) % [place] % (Auto) (0.0-15.0) % Eos % (Auto) (0.0-7.0) % Baso % (Auto) (0.0-1.5) % Neut # (Auto) (1.4-5.7) K/uL Lymph # (Auto) (0.6-2.4) K/uL [place] # (Auto) (0.0-0.8) K/uL Eos # (Auto) (0.0-0.7) K/uL Baso # (Auto) (0.0-0.1) K/uL Nucleated RBC % /100WBC Nucleated RBCs # K/uL Sodium (136-145) mmol/L Potassium (3.5-5.1) mmol/L Chloride (98-107) mmol/L Carbon Dioxide (21.0-32.0) mmol/L BUN (7.0-18.0) mg/dL Creatinine (0.6-1.0) mg/dL Est Cr Clr Drug Dosing mL/min Estimated GFR (MDRD) ml/min Glucose (74-106) mg/dL POC Glucose 154 H 142 H 134 H (60-110) mg/dL Calcium (8.5-10.1) mg/dL 09/11/17 09/11/17 09/11/17 Range/Units 06:01 06:01 06:16 WBC 7.99 (4.0-11.0) K/uL RBC 5.20 (4.30-5.90) M/uL Hgb 12.8 (12.0-16.0) g/dL Hct 39.5 (36.0-46.0) % MCV 76.0 L (80.0-98.0) fL MCH 24.6 L (27.0-32.0) pg MCHC 32.4 (31.0-37.0) g/dL RDW Std Deviation 55.4 (28.0-62.0) fl RDW Coeff of Lata 21 H (11.0-15.0) % Plt Count 200 (150-400) K/uL MPV 10.00 (7.40-12.00) fL Neut % (Auto) 73.4 (48.0-80.0) % Lymph % (Auto) 16.1 (16.0-40.0) % [place] % (Auto) 9.5 (0.0-15.0) % Eos % (Auto) 0.9 (0.0-7.0) % Baso % (Auto) 0.1 (0.0-1.5) % Neut # (Auto) 5.9 H (1.4-5.7) K/uL Lymph # (Auto) 1.3 (0.6-2.4) K/uL [place] # (Auto) 0.8 (0.0-0.8) K/uL Eos # (Auto) 0.1 (0.0-0.7) K/uL Baso # (Auto) 0.0 (0.0-0.1) K/uL Nucleated RBC % 0.0 /100WBC Nucleated RBCs # 0 K/uL Sodium 137 (136-145) mmol/L Potassium 3.0 L (3.5-5.1) mmol/L Chloride 99 (98-107) mmol/L Carbon Dioxide 24.8 (21.0-32.0) mmol/L BUN 63 H (7.0-18.0) mg/dL Creatinine 3.1 H (0.6-1.0) mg/dL Est Cr Clr Drug Dosing 15.19 mL/min Estimated GFR (MDRD) 14.9 ml/min Glucose 116 H (74-106) mg/dL POC Glucose 121 H (60-110) mg/dL Calcium 9.1 (8.5-10.1) mg/dL 09/11/17 Range/Units 11:33 WBC (4.0-11.0) K/uL RBC (4.30-5.90) M/uL Hgb (12.0-16.0) g/dL Hct (36.0-46.0) % MCV (80.0-98.0) fL MCH (27.0-32.0) pg MCHC (31.0-37.0) g/dL RDW Std Deviation (28.0-62.0) fl RDW Coeff of Lata (11.0-15.0) % Plt Count (150-400) K/uL MPV (7.40-12.00) fL Neut % (Auto) (48.0-80.0) % Lymph % (Auto) (16.0-40.0) % [place] % (Auto) (0.0-15.0) % Eos % (Auto) (0.0-7.0) % Baso % (Auto) (0.0-1.5) % Neut # (Auto) (1.4-5.7) K/uL Lymph # (Auto) (0.6-2.4) K/uL [place] # (Auto) (0.0-0.8) K/uL Eos # (Auto) (0.0-0.7) K/uL Baso # (Auto) (0.0-0.1) K/uL Nucleated RBC % /100WBC Nucleated RBCs # K/uL Sodium (136-145) mmol/L Potassium (3.5-5.1) mmol/L Chloride (98-107) mmol/L Carbon Dioxide (21.0-32.0) mmol/L BUN (7.0-18.0) mg/dL Creatinine (0.6-1.0) mg/dL Est Cr Clr Drug Dosing mL/min Estimated GFR (MDRD) ml/min Glucose (74-106) mg/dL POC Glucose 101 (60-110) mg/dL Calcium (8.5-10.1) mg/dL Med Orders - Current: Current Medications Acetaminophen (Tylenol) 650 mg PO Q4H PRN PRN Reason: Pain (Mild 1-3)/fever Albuterol/Ipratropium (Duoneb 3.0-0.5 Mg/3 Ml) 3 ml NEB Q4HRRT PRN PRN Reason: Shortness Of Breath/wheezing Amiodarone HCl (Cordarone) 200 mg PO DAILY [facility] Last Admin: 09/11/17 08:57 Dose: 200 mg Apixaban (Eliquis) 5 mg PO BID [facility] Last Admin: 09/11/17 08:57 Dose: 5 mg Atorvastatin Calcium (Lipitor) 40 mg PO BEDTIME [facility] Last Admin: 09/10/17 21:16 Dose: 40 mg Fluoxetine HCl (Prozac) 10 mg PO DAILY [facility] Last Admin: 09/11/17 08:58 Dose: 10 mg Insulin Aspart (Novolog) 5 unit SUBCUT TIDMEALS [facility] Last Admin: 09/11/17 12:23 Dose: Not Given Insulin Detemir (Levemir) 10 unit SUBCUT BEDTIME [facility] Last Admin: 09/10/17 21:16 Dose: 10 units Metoprolol Succinate (Toprol Xl) 50 mg PO DAILY [facility] Last Admin: 09/11/17 08:57 Dose: 50 mg Ondansetron HCl (Zofran) 4 mg IVPUSH Q4H PRN PRN Reason: Nausea Mexilitine 200 Mg 200 each PO BID [facility] Last Admin: 09/11/17 08:58 Dose: 200 each Potassium Chloride (Potassium Chloride) 40 meq PO BID [facility] Last Admin: 09/11/17 12:23 Dose: 40 meq Potassium Chloride (Potassium Chloride) 40 meq PO DAILY [facility] Spironolactone (Aldactone) 12.5 mg PO DAILY [facility] Last Admin: 09/11/17 08:57 Dose: 12.5 mg Discontinued Medications Albuterol/Ipratropium (Duoneb 3.0-0.5 Mg/3 Ml) 3 ml NEB ONETIME ONE Stop: 09/09/17 11:50 Last Admin: 09/09/17 12:16 Dose: 3 ml Albuterol/Ipratropium (Duoneb 3.0-0.5 Mg/3 Ml) 3 ml NEB ONETIME ONE Stop: 09/09/17 11:54 Last Admin: 09/09/17 12:40 Dose: Not Given Furosemide (Lasix) 60 mg IVPUSH NOW ONE Stop: 09/09/17 13:24 Last Admin: 09/09/17 14:18 Dose: 60 mg Furosemide (Lasix) 60 mg IVPUSH NOW ONE Stop: 09/10/17 14:12 Last Admin: 09/10/17 14:57 Dose: 60 mg Furosemide (Lasix) 60 mg IVPUSH NOW ONE Stop: 09/11/17 10:06 Last Admin: 09/11/17 10:17 Dose: 60 mg Lorazepam (Ativan) 0.5 mg IVPUSH ONETIME ONE Stop: 09/11/17 10:01 Last Admin: 09/11/17 15:47 Dose: Not Given Potassium Chloride (Klor-Con M20) 40 meq PO BID [facility] Last Admin: 09/11/17 11:21 Dose: Not Given Potassium Chloride (Klor-Con M20) 40 meq PO DAILY [facility] Last Admin: 09/11/17 15:48 Dose: Not Given Wound Care/Dressing Products (Duoderm Cgf) 1 each TOP ASDIRECTED ONE Stop: 09/09/17 17:13 Last Admin: 09/09/17 17:36 Dose: 1 each - Exam General: Alert, Oriented, Cooperative, Mild Distress Lungs: Clear to Auscultation, Normal Respiratory Effort Cardiovascular: Regular Rate, Regular Rhythm GI/Abdominal Exam: Normal Bowel Sounds, Soft, Non-Tender Back Exam: Normal Inspection Extremities: Pedal Edema - Problem List Review Problem List Initiated/Reviewed/Updated: Yes - My Orders Last 24 Hours: My Active Orders 09/11/17 12:15 Potassium Chloride 40 meq PO BID 09/11/17 12:16 Admission Status [Patient Status] [ADT] Routine - Plan Plan:: 72 yo female admitted for CHF exacerbation with a elevated creatinine BUN level , along with a history of anxiety. Patient did not respond well to the 60 mg IV Lasix dose that was given once yesterday, patient only had 400 mL of urine output in the past 12 hours, patient will require an increased dose of her Lasix, as such she will get 60 mg IV in the a.m. and another 60 mg IV in the p.m. CKD: creatinine has improved with diuresis a.fib: rate controlled, will continue antiarrythmics and eliquis Anxiety: Patient is on Prozac 10 mg daily, I have increased that dose to 20 mg daily as the patient has been on Prozac for the past 2 weeks for anxiety/panic attack disorder.
[2017-09-11] MEDS: atorvaSTATin 40 MG Tab PO SCH (21:00)
[2017-09-11] MEDS: Insulin Detemir 100 Units/ML 3 ML Pen SUBCUT SCH (21:30)
[2017-09-12] MEDS ORDERED: FLUoxetine 20 MG Cap PO SCH (09:00)
[2017-09-12] MEDS: Insulin Aspart 100 Units/ML 3 ML Pen SUBCUT SCH ×3 (09:37→16:53)
[2017-09-12] MEDS: Amiodarone 200 MG Tab PO SCH (09:39)
[2017-09-12] MEDS: Metoprolol Succinate 50 MG Tab.ER PO SCH (09:39)
[2017-09-12] MEDS: Apixaban 5 MG Tab PO SCH ×2 (09:39→21:09)
[2017-09-12] MEDS: Spironolactone 25 MG Tab PO SCH (09:39)
[2017-09-12] MEDS: Potassium Chloride 10% 20 MEQ/15 ML Soln 30 ML UD Cup PO SCH ×2 (09:40→21:10)
[2017-09-12] MEDS: MEXILITINE PO SCH (09:41)
[2017-09-12] MEDS ORDERED: hydrOXYzine Pamoate 25 MG Cap PO ONE (11:22)
[2017-09-12] MEDS: Furosemide 40 MG/4 ML VIAL IVPUSH ONE ×2 (11:58→12:01)
[2017-09-12] MEDS ORDERED: Furosemide 40 MG/4 ML VIAL IVPUSH ONE ×2 (13:26→13:50)
[2017-09-12] MEDS ORDERED: Furosemide 40 MG/4 ML VIAL IV ONE (14:00)
[2017-09-12] MEDS ORDERED: Furosemide 100 MG in Sodium Chloride 0.9% 90 ML IV SCH (17:30)
--- NOTE | 2017-09-12 17:55 | PCM.PN ---
- General Info Date of Service: 09/12/17 Subjective Update: Patient was initially seen seem to be calm and not showing signs of anxiety, she stated that with made up her Prozac dosage it seemed to help her anxiety which is likely a psychological effect rather than a real medication effect as SSRIs to take an extensive period of time for they are effective against gentle anxiety/panic attack disorder. During rounds when reassessing the patient she appeared to have a number of panic attacks within a short time frame. - Patient Data Vitals - Most Recent: Last Vital Signs Temp 35.9 C 09/12/17 15:46 Pulse 90 09/12/17 15:46 Resp 20 09/12/17 15:46 BP 88/61 L 09/12/17 15:46 Pulse Ox 96 09/12/17 15:46 Weight - Most Recent: 112 kg I&O - Last 24 Hours: Intake & Output 09/12/17 09/12/17 09/12/17 06:59 14:59 22:59 Intake Total 210 568 Output Total 100 100 Balance 110 468 Lab Results Last 24 Hours: Laboratory Results - last 24 hr 09/11/17 09/12/17 09/12/17 Range/Units 21:30 06:47 09:54 WBC 9.12 (4.0-11.0) K/uL RBC 5.50 (4.30-5.90) M/uL Hgb 13.5 (12.0-16.0) g/dL Hct 42.0 (36.0-46.0) % MCV 76.4 L (80.0-98.0) fL MCH 24.5 L (27.0-32.0) pg MCHC 32.1 (31.0-37.0) g/dL RDW Std Deviation 56.0 (28.0-62.0) fl RDW Coeff of Lata 22 H (11.0-15.0) % Plt Count 257 (150-400) K/uL MPV 10.40 (7.40-12.00) fL Neut % (Auto) 74.6 (48.0-80.0) % Lymph % (Auto) 15.7 L (16.0-40.0) % [place] % (Auto) 8.7 (0.0-15.0) % Eos % (Auto) 0.9 (0.0-7.0) % Baso % (Auto) 0.1 (0.0-1.5) % Neut # (Auto) 6.8 H (1.4-5.7) K/uL Lymph # (Auto) 1.4 (0.6-2.4) K/uL [place] # (Auto) 0.8 (0.0-0.8) K/uL Eos # (Auto) 0.1 (0.0-0.7) K/uL Baso # (Auto) 0.0 (0.0-0.1) K/uL Nucleated RBC % 0.6 /100WBC Nucleated RBCs # 0 K/uL Sodium (136-145) mmol/L Potassium (3.5-5.1) mmol/L Chloride (98-107) mmol/L Carbon Dioxide (21.0-32.0) mmol/L BUN (7.0-18.0) mg/dL Creatinine (0.6-1.0) mg/dL Est Cr Clr Drug Dosing mL/min Estimated GFR (MDRD) ml/min Glucose (74-106) mg/dL POC Glucose 122 H 96 (60-110) mg/dL Calcium (8.5-10.1) mg/dL Total Bilirubin (0.2-1.0) mg/dL AST (15-37) IU/L ALT (14-63) IU/L Alkaline Phosphatase (46-116) U/L Total Protein (6.4-8.2) g/dL Albumin (3.4-5.0) g/dL Globulin (2.0-3.5) g/dL Albumin/Globulin Ratio (1.3-2.8) 09/12/17 09/12/17 09/12/17 Range/Units 09:54 11:57 16:50 WBC (4.0-11.0) K/uL RBC (4.30-5.90) M/uL Hgb (12.0-16.0) g/dL Hct (36.0-46.0) % MCV (80.0-98.0) fL MCH (27.0-32.0) pg MCHC (31.0-37.0) g/dL RDW Std Deviation (28.0-62.0) fl RDW Coeff of Lata (11.0-15.0) % Plt Count (150-400) K/uL MPV (7.40-12.00) fL Neut % (Auto) (48.0-80.0) % Lymph % (Auto) (16.0-40.0) % [place] % (Auto) (0.0-15.0) % Eos % (Auto) (0.0-7.0) % Baso % (Auto) (0.0-1.5) % Neut # (Auto) (1.4-5.7) K/uL Lymph # (Auto) (0.6-2.4) K/uL [place] # (Auto) (0.0-0.8) K/uL Eos # (Auto) (0.0-0.7) K/uL Baso # (Auto) (0.0-0.1) K/uL Nucleated RBC % /100WBC Nucleated RBCs # K/uL Sodium 135 L (136-145) mmol/L Potassium 4.6 (3.5-5.1) mmol/L Chloride 99 (98-107) mmol/L Carbon Dioxide 21.4 (21.0-32.0) mmol/L BUN 70 H (7.0-18.0) mg/dL Creatinine 3.8 H (0.6-1.0) mg/dL Est Cr Clr Drug Dosing 12.40 mL/min Estimated GFR (MDRD) 11.7 ml/min Glucose 181 H (74-106) mg/dL POC Glucose 182 H 94 (60-110) mg/dL Calcium 9.2 (8.5-10.1) mg/dL Total Bilirubin 1.0 (0.2-1.0) mg/dL AST 107 H (15-37) IU/L ALT 95 H (14-63) IU/L Alkaline Phosphatase 134 H (46-116) U/L Total Protein 6.3 L (6.4-8.2) g/dL Albumin 3.0 L (3.4-5.0) g/dL Globulin 3.3 (2.0-3.5) g/dL Albumin/Globulin Ratio 0.9 L (1.3-2.8) Med Orders - Current: Current Medications Acetaminophen (Tylenol) 650 mg PO Q4H PRN PRN Reason: Pain (Mild 1-3)/fever Last Admin: 09/12/17 10:04 Dose: 650 mg Albuterol/Ipratropium (Duoneb 3.0-0.5 Mg/3 Ml) 3 ml NEB Q4HRRT PRN PRN Reason: Shortness Of Breath/wheezing Amiodarone HCl (Cordarone) 200 mg PO DAILY [facility] Last Admin: 09/12/17 09:39 Dose: 200 mg Apixaban (Eliquis) 5 mg PO BID [facility] Last Admin: 09/12/17 09:39 Dose: 5 mg Atorvastatin Calcium (Lipitor) 40 mg PO BEDTIME [facility] Last Admin: 09/11/17 21:00 Dose: 40 mg Fluoxetine HCl (Prozac) 20 mg PO DAILY [facility] Last Admin: 09/12/17 09:39 Dose: 20 mg Furosemide 100 mg/ Sodium (Chloride) 100 mls @ 10 mls/hr IV TITRATE [facility]; Protocol Insulin Aspart (Novolog) 5 unit SUBCUT TIDMEALS [facility] Last Admin: 09/12/17 16:53 Dose: Not Given Insulin Detemir (Levemir) 10 unit SUBCUT BEDTIME [facility] Last Admin: 09/11/17 21:30 Dose: 10 units Metolazone (Zaroxolyn) 2.5 mg PO DAILY [facility] Metoprolol Succinate (Toprol Xl) 50 mg PO DAILY [facility] Last Admin: 09/12/17 09:39 Dose: 50 mg Ondansetron HCl (Zofran) 4 mg IVPUSH Q4H PRN PRN Reason: Nausea Mexiletine 200 Mg 1 each PO BID [facility] Potassium Chloride (Potassium Chloride) 40 meq PO BID [facility] Last Admin: 09/12/17 09:40 Dose: 40 meq Spironolactone (Aldactone) 12.5 mg PO DAILY [facility] Last Admin: 09/12/17 09:39 Dose: 12.5 mg Discontinued Medications Albuterol/Ipratropium (Duoneb 3.0-0.5 Mg/3 Ml) 3 ml NEB ONETIME ONE Stop: 09/09/17 11:50 Last Admin: 09/09/17 12:16 Dose: 3 ml Albuterol/Ipratropium (Duoneb 3.0-0.5 Mg/3 Ml) 3 ml NEB ONETIME ONE Stop: 09/09/17 11:54 Last Admin: 09/09/17 12:40 Dose: Not Given Fluoxetine HCl (Prozac) 10 mg PO DAILY [facility] Last Admin: 09/11/17 08:58 Dose: 10 mg Fluoxetine HCl (Prozac) 10 mg PO 09/11/17@1630 ONE Stop: 09/11/17 16:31 Last Admin: 09/11/17 16:54 Dose: 10 mg Furosemide (Lasix) 60 mg IVPUSH NOW ONE Stop: 09/09/17 13:24 Last Admin: 09/09/17 14:18 Dose: 60 mg Furosemide (Lasix) 60 mg IVPUSH NOW ONE Stop: 09/10/17 14:12 Last Admin: 09/10/17 14:57 Dose: 60 mg Furosemide (Lasix) 60 mg IVPUSH NOW ONE Stop: 09/11/17 10:06 Last Admin: 09/11/17 10:17 Dose: 60 mg Furosemide (Lasix) 60 mg IVPUSH NOW ONE Stop: 09/11/17 19:52 Last Admin: 09/11/17 21:00 Dose: 60 mg Furosemide (Lasix) 80 mg IVPUSH NOW ONE Stop: 09/12/17 11:22 Last Admin: 09/12/17 12:01 Dose: 80 mg Furosemide (Lasix) 80 mg IVPUSH NOW ONE Stop: 09/12/17 13:27 Last Admin: 09/12/17 14:41 Dose: Not Given Furosemide (Lasix) 80 mg IV ONETIME ONE Stop: 09/12/17 14:01 Last Admin: 09/12/17 14:28 Dose: 80 mg Hydroxyzine Pamoate (Vistaril) 25 mg PO ONETIME ONE Stop: 09/12/17 11:23 Last Admin: 09/12/17 11:59 Dose: 25 mg Furosemide 100 mg/ Sodium (Chloride) 100 mls @ 10 mls/hr IV TITRATE [facility]; Protocol Lorazepam (Ativan) 0.5 mg IVPUSH ONETIME ONE Stop: 09/11/17 10:01 Last Admin: 09/11/17 15:47 Dose: Not Given Mexilitine 200 Mg 200 each PO BID [facility] Last Admin: 09/12/17 09:41 Dose: Not Given Potassium Chloride (Klor-Con M20) 40 meq PO BID [facility] Last Admin: 09/11/17 11:21 Dose: Not Given Potassium Chloride (Klor-Con M20) 40 meq PO DAILY [facility] Last Admin: 09/11/17 15:48 Dose: Not Given Wound Care/Dressing Products (Duoderm Cgf) 1 each TOP ASDIRECTED ONE Stop: 09/09/17 17:13 Last Admin: 09/09/17 17:36 Dose: 1 each - Exam Quality Assessment: Supplemental Oxygen General: Alert, Oriented, Cooperative, Mild Distress Lungs: Clear to Auscultation, Normal Respiratory Effort Cardiovascular: Regular Rate, Regular Rhythm Extremities: Pedal Edema - Problem List Review Problem List Initiated/Reviewed/Updated: Yes - My Orders Last 24 Hours: My Active Orders 09/12/17 09:00 FLUoxetine [PROzac] 20 mg PO DAILY 09/13/17 05:11 CBC WITH AUTO DIFF [HEME] AM COMPREHENSIVE METABOLIC PN,CMP [CHEM] AM MAGNESIUM [CHEM] AM - Plan Plan:: 72 yo female admitted for CHF exacerbation with a elevated creatinine BUN level , along with a history of anxiety. Patient did not respond well to the 60 mg IV Lasix dose. As such the decision was made to give the patient 80 of IV Lasix, and consult cardiology. We will take cardiology's recommendations and decide how to proceed further. CKD: creatinine has improved with diuresis a.fib: rate controlled, will continue antiarrythmics and eliquis Anxiety: Patient is on Prozac 20 mg daily, I'll consult with Dr. Potts for a telemetry psych consultation in regards to the patient's anxiety/panic attacks. Would like direction as far as how to acutely treat the and what the long-term goal should be for the patient.
[2017-09-12] MEDS: Metolazone 5 MG Tab PO SCH (18:03)
[2017-09-12] MEDS: Furosemide 100 MG in Sodium Chloride 0.9% 90 ML IV SCH (18:10)
[2017-09-12] MEDS: MEXILETINE 200 MG PO SCH ×2 (18:23→21:10)
[2017-09-12] MEDS: atorvaSTATin 40 MG Tab PO SCH (21:09)
[2017-09-12] MEDS: Insulin Detemir 100 Units/ML 3 ML Pen SUBCUT SCH (21:11)
[2017-09-13] MEDS: Furosemide 100 MG in Sodium Chloride 0.9% 90 ML IV SCH ×2 (02:39→06:15)
[2017-09-13] MEDS ORDERED: Calcium Gluconate 10% 1 GM/10 ML SDV IV ONE (07:36)
[2017-09-13] MEDS ORDERED: 50% Dextrose in Water 50 ML Syringe IVPUSH ONE (07:36)
[2017-09-13] MEDS ORDERED: Insulin Regular, Human 100 Units/ML 10 ML Vial IVPUSH ONE (07:37)
[2017-09-13] MEDS ORDERED: Sodium Polystyrene Sulfonate 15 GM/60 ML Susp 60 ML Bot PO STA (07:50)
[2017-09-13] MEDS ORDERED: hydrOXYzine Pamoate 25 MG Cap PO ONE (08:40)
[2017-09-13] MEDS ORDERED: QUEtiapine 25 MG Tab PO ONE (08:41)
[2017-09-13] MEDS: Insulin Aspart 100 Units/ML 3 ML Pen SUBCUT SCH ×2 (08:47→11:55)
[2017-09-13] MEDS ORDERED: FLUoxetine 20 MG Cap PO SCH (09:00)
[2017-09-13] MEDS: Amiodarone 200 MG Tab PO SCH (09:03)
[2017-09-13] MEDS: Metoprolol Succinate 50 MG Tab.ER PO SCH (09:03)
[2017-09-13] MEDS: Metolazone 5 MG Tab PO SCH (09:04)
[2017-09-13] MEDS: MEXILETINE 200 MG PO SCH (09:06)
--- NOTE | 2017-09-13 12:55 | ECHO ---
EXAM DATE: 09/11/17 PATIENT'S AGE: 72 The echocardiogram report can be seen in this patient's EMR (Electronic Medical Record) in the Reports section. The report has also been scanned into PACs. FABIO
--- NOTE | 2017-09-13 13:50 | CONS ---
DATE OF CONSULTATION: 09/13/2017 DATE OF : 1945 PRIMARY CARE PHYSICIAN: None PCP IDENTIFICATION: The patient is a 72-year-old female, who was admitted to the inpatient Med-Surg unit at [facility] in [place], [place]. She is seen for psychiatric consultation this morning. CHIEF COMPLAINT: "Short of breath." HISTORY OF PRESENT ILLNESS: The patient is a 72-year-old female, who reports that she was admitted "about three days ago" after she began experiencing increased shortness of breath. The patient states that she has been dealing with some medical complications over the last few months and states "I had a pacemaker and defibrillator put in in July" 2017 because of her CHF issues. The patient is stating that she has been struggling with a lot of depression and anxiety. She states that she was started on Prozac "about two weeks ago," and since that time, she has had this medcation increased from 10 mg to 20 mg a couple of days ago, and she is noting that she is "starting to feel a little less depressed." Main issue at this point in time is that even though she is feeling less depressed "whenever I lie down and shut my eyes, I just panic." The patient has lot of anxiety and she worries about her ongoing health issues. She reports racing thoughts, ruminations, often to the point of distraction, and she states that she gets "very little sleep" over a 24 hour period. She denies that she is suicidal or homicidal. She denies any psychotic delusional paranoia symptoms. She states that she was tried on Ativan in the past, " but that had me hallucinating" and she notes also that "my daughter is allergic to Ativan too." The patient is willing to try an alternative medication treatment plan to help with her anxiety, panic, and depression, but she does not want to try Ativan at this point in time. Also, complicating the clinical situation is the fact that the patient lost her brother whom she was close to back in October of 2016. The patient denies any illicit substance use or excessive alcohol use complicating the clinical picture. MEDICATIONS: At the time of presentation, Prozac 20 mg q.a.m. The patient states she has been on this medication for about two weeks. ALLERGIES: No known drug allergies. PAST MEDICAL HISTORY: 1. Pacemaker placement and defibrillator placement in July 2017. 2. Type 1 diabetes history diagnosed at beginning of 2018. 3. Recent development of hyperkalemia. REVIEW OF SYSTEMS: Aside from cardiovascular, endocrine, and possibly hepatic, all other major organ systems are negative at this point in time for acute difficulties or complications. FAMILY PSYCHIATRIC AND CD HISTORY: The patient denies past psychiatric and CD history. The patient denies any previous psychiatric hospitalizations or chemical dependency treatments. Denies any previous suicide attempts or self-injurious behaviors. PAST PSYCHIATRIC MEDICATION HISTORY: Includes Ativan, which caused patient to hallucinate. PRIMARY OUTPATIENT CARE PROVIDERS: Dr. Marilyn Quinones. SOCIAL HISTORY: The patient is born and raised in [facility]. She is second of two siblings, having one older brother. The patient's parents were throughout childhood and adolescence. Father is a antunez, mother is a homemaker. The patient's highest level education is high school diploma. 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 The patient was x1 for 30 years, but her secondary Jade Gehrig disease. He worked in construction before he . She has three children from the marriage. She lives in [place], [place] with her daughter, and she denies any prior service or current legal difficulties. She has raised Religion. She enjoys embrWikipixelery and woodworking in her spare time. MENTAL STATUS EXAM: The patient is a 72-year-old soft spoken white female, in no apparent distress. Speech is of regular rate and rhythm. Patient is cognitively oriented. Psychomotor activities within normal limits. There are no abnormal motor movements or tics observed. Gait and station are not observed. The patient is seated on the side of her bed for the purposes of inpatient consult. Mood is anxious and depressed. Affect consistent with stated mood, somewhat restricted and guarded, but cooperative overall for the purposes of the inpatient consult. There is no behavioral or stated evidence of acute suicidal or homicidal ideation or acute psychotic delusional paranoid symptoms. Thought processes are significant for racing thoughts, and ruminations However, there are no acute manic symptoms or loose associations evident. Judgment and insight appear unimpaired. At this point in time, motivation for help appears fair to good. VITAL SIGNS: 86/53, 89, 20, 37.2 degrees Celsius. IMPRESSION: [employer] I: 1. Major depressive disorder, F32.2. 2. Anxiety disorder, not otherwise specified, F41.9. 3. Rule out posttraumatic stress disorder. 4. Rule out panic disorder without agoraphobic symptoms. [employer] II: None. [employer] III: 1. Pacemaker placement and defibrillator placement in July of 2017. 2. Diagnosis of type 1 diabetes, beginning in 2018. 3. Recent development of hyperkalemia. [employer] IV: Severe. [employer] V: 55. PLAN: 1. Begin trial of Seroquel 50 mg at bedtime to help reduce raising thoughts and ruminations, and also provide anxiety reduction, and assist with sleep initiation and maintenance, and clarity of thought. 2. Increase patient's Prozac from 20 to 40 mg q.a.m. also to help with mood. 3. Would recommend Seroquel 25 mg x1 now. 4. Recommend Vistaril 50 mg x1 now. 5. Other medications as dosed and prescribed by the patient's primary and inpatient medical treatment team. 6. I will continue to follow up with patient on as needed basis while patient remains on the inpatient Med-Surg Unit on as-needed basis. 7. We will follow up with patient sooner if there are any complications in the interim. 8. Recommend the patient to follow up with Outpatient Psychiatry when she is medically stabilized and discharged back to the community to review and monitor her current psychiatric medication treatment program. 9. Crisis plan is in place. ABBI JOSEPH /[id number] FABIO
--- NOTE | 2017-09-13 14:17 | CONS ---
DATE OF CONSULTATION: DATE OF : 1945 PRIMARY CARE PHYSICIAN: None PCP REASON FOR CONSULTATION: Heart failure. HISTORY OF PRESENT ILLNESS: This is a 72-year-old female with several comorbidities including morbid obesity; type 2 diabetes; CKD, stage 3; hypertension; CAD; and ischemic cardiomyopathy, status post PCI, and with systolic dysfunction supposingly 25%, presented to the hospital at this time due to fatigue, being weak, and feeling unwell, increasing leg swelling. She was felt to have a decompensated heart failure with elevated BNP, as well as a chest x-ray shows mild vascular congestion and cardiomegaly. While she was on the floor, she was given Lasix 80 mg IV. She was on Bumex at home; however, she has not made a good urine output with renal insufficiency with creatinine of 3.8. We do not have her baseline Cr at that [facility] when she arrived. This is the first time for her to be admitted here in this hospital. She denies chest pain. She has mild shortness of breath. Last July, she was admitted to the hospital in [place] in [place] because of feeling fatigued, generalized weakness, exertional dyspnea, and also bilateral lower edema and a low blood pressure. She was found to have acute decompensated systolic heart failure and also [id number]-chronic renal failure and history of atrial fibrillation with RVR. She was admitted to the ICU as well as got intubated because of the respiratory failure. She also was found to have recurrent ventricular fibrillation per discharge summary, and amiodarone as well as mexiletine were started for arrhythmia (supposingly VF/ Afib), and she also required vasopressor support for her blood pressure with phenylephrine as well as the Levophed. Because of recurrent ventricular fibrillation, she has undergone the cardioversion, as well as ACLS protocol for cardiac arrest. This was unclear that the arrhythmia that she had when she was admitted in [place] was actually atrial fibrillation versus a ventricular fibrillation. However, on the discharge summary, mentioned that she had a cardioversion on July 09, 2017, and that she converted from atrial flutter to sinus rhythm. She also had a V/Q scan at that time which showed low probability for a PE. She was ound to also have elevated liver function as well as the acute tubular necrosis due to possibly cardiogenic shock; however when she was in there, her hepatic and renal functions seemed to be improved, after bumex, and then she eventually had undergone dual-chamber defibrillator for secondary prevention of sudden cardiac arrest, and she also was started on apixaban for her atrial fibrillation. At that time, noted that her creatinine was 1.2 up to 2.1. Diuretic was adjusted from furosemide to Bumex. She was discharged with Bumex. DISCHARGE MEDICATIONS: Include: 1. Amiodarone 200 mg b.i.d. 2. Apixaban 2.5 mg b.i.d. 3. Atorvastatin 40 mg once a day as well as Bumex 1 mg twice a day. 4. Carvedilol 3.125 b.i.d. 5. Mexiletine 200 mg q.8 hours. PAST MEDICAL HISTORY: Include: 1. Morbid obesity. 2. History of coronary artery disease, status post PCI one year ago; ischemic cardiomyopathy; and a severe left ventricular systolic dysfunction with ejection fraction of 20%. 3. History of persistent atrial fibrillation, requiring cardioversion due to hypotension. 4. History of ventricular fibrillation, status post ACL protocol and status post dual-chamber defibrillator placement. 5. History of hypertension. 6. History of chronic kidney disease, stage 3. ALLERGIES: No known drug allergies. SOCIAL HISTORY: She denied drug use, alcoholic consumption, and smoking. FAMILY HISTORY: She denies any heart disease in her parents. REVIEW OF SYSTEMS: Except as indicated in the HPI, otherwise, has been negative. PHYSICAL EXAMINATION: VITAL SIGNS: Her blood pressure was quite borderline to low 80 with systolic blood pressure of 80 to 100 over a diastolic blood pressure of 40 to 60, heart rate of 90, temperature of 36.4, and O2 saturation 96% on 1 L of nasal cannula. HEENT AND NECK: Mouth dry. Looks tired, looks pale, as well as JVD is positive. HEART: Normal S1 and S2. Systolic murmur. LUNGS: Bilateral crackles. No wheezing. ABDOMEN: Mildly distended. LEGS: Edema 3+. LABORATORY INVESTIGATION: CBC showed WBC of 9, hematocrit of 42, hemoglobin of 13, platelet 257. Sodium 135, potassium 4.6, chloride 99, bicarb 21. BUN 70, creatinine is 3.8. AST 107, ALT 95, glucose 182. BNP 2371. Troponin was less than 0.050. Calcium 9.2. Chest x-ray showed mild pulmonary vascular congestion and cardiomegaly. EKG showed V pace. ASSESSMENT AND PLAN: This is a 72-year-old female with history of coronary artery disease, ischemic cardiomyopathy, ejection fraction 25% to 30%; type 2 diabetes; hypertension; and chronic kidney disease, stage 3, in here admitted to the hospital volume overloaded due to decompensated left ventricular systolic dysfunction, possibly also from acute kidney injury on top of chronic kidney disease. She already got Lasix 80 mg IV today. I will give another 80 mg of IV Lasix and see how she responds to the IV Lasix, and if she is not making a good urine with such a high dose of Lasix, she probably need to have IV infusion of Lasix plus the distal loop diuretic such as metolazone and if she is still not responding to IV infusion of Lasix, she probably need to be transferred for urgent dialysis as well. Will stop aldactone for now. Will continue amiodarone/mexitile for her VF/ af. If she failed to make a good urine output with aggresive diuretic therpies, she would need to be transferred to tertiary care hospital for temporarily HD. With complicated cardiac history, she would probably need invasive cardiac monitoring, possible cardiac support. - will add another lasix 80 IV - continue low dose coreg 3.125 BID - continue amiodraone/mexitil for now. - strict I/O JOSEPH / JAKE /[id number]
--- NOTE | 2017-09-13 16:55 | PCM.PN ---
- General Info Date of Service: 09/13/17 Admission Dx/Problem (Free Text): This is a 72-year-old female with history of coronary artery disease, ischemic cardiomyopathy, ejection fraction 25% to 30%; type 2 diabetes; hypertension; and chronic kidney disease, stage 3, in here admitted to the hospital volume overloaded due to decompensated left ventricular systolic dysfunction, possibly also from acute kidney injury on top of chronic kidney disease. Subjective Update: her urine output was minimal after aggressive diuretic therapy with metolazone. LFT worse, Cr worse. K from 4 rising to 6.2 - Review of Systems General: Reports: No Symptoms HEENT: Reports: No Symptoms Pulmonary: Reports: No Symptoms Cardiovascular: Reports: No Symptoms Gastrointestinal: Reports: No Symptoms Genitourinary: Reports: No Symptoms Musculoskeletal: Reports: No Symptoms Skin: Reports: No Symptoms Neurological: Reports: No Symptoms Psychiatric: Reports: No Symptoms - Patient Data Vitals - Most Recent: Last Vital Signs Temp 36.3 C 09/13/17 11:35 Pulse 90 09/13/17 11:35 Resp 27 H 09/13/17 11:35 BP 95/50 L 09/13/17 11:35 Pulse Ox 98 09/13/17 11:35 Weight - Most Recent: 112.5 kg I&O - Last 24 Hours: Intake & Output 09/13/17 09/13/17 09/13/17 06:59 14:59 22:59 Intake Total 200 954 Output Total 40 180 Balance 160 774 Lab Results Last 24 Hours: Laboratory Results - last 24 hr 09/12/17 09/12/17 09/13/17 Range/Units 16:50 21:08 05:15 WBC 12.83 H (4.0-11.0) K/uL RBC 5.55 (4.30-5.90) M/uL Hgb 13.6 (12.0-16.0) g/dL Hct 42.6 (36.0-46.0) % MCV 76.8 L (80.0-98.0) fL MCH 24.5 L (27.0-32.0) pg MCHC 31.9 (31.0-37.0) g/dL RDW Std Deviation 56.8 (28.0-62.0) fl RDW Coeff of Lata 22 H (11.0-15.0) % Plt Count 262 (150-400) K/uL MPV 10.60 (7.40-12.00) fL Neut % (Auto) 83.6 H (48.0-80.0) % Lymph % (Auto) 8.2 L (16.0-40.0) % Stephenson % (Auto) 8.0 (0.0-15.0) % Eos % (Auto) 0.1 (0.0-7.0) % Baso % (Auto) 0.1 (0.0-1.5) % Neut # (Auto) 10.7 H (1.4-5.7) K/uL Lymph # (Auto) 1.1 (0.6-2.4) K/uL Stephenson # (Auto) 1.0 H (0.0-0.8) K/uL Eos # (Auto) 0.0 (0.0-0.7) K/uL Baso # (Auto) 0.0 (0.0-0.1) K/uL Nucleated RBC % 0.5 /100WBC Nucleated RBCs # 0 K/uL Sodium (136-145) mmol/L Potassium (3.5-5.1) mmol/L Chloride (98-107) mmol/L Carbon Dioxide (21.0-32.0) mmol/L BUN (7.0-18.0) mg/dL Creatinine (0.6-1.0) mg/dL Est Cr Clr Drug Dosing mL/min Estimated GFR (MDRD) ml/min Glucose (74-106) mg/dL POC Glucose 94 146 H (60-110) mg/dL Calcium (8.5-10.1) mg/dL Magnesium (1.5-2.0) mg/dL Total Bilirubin (0.2-1.0) mg/dL AST (15-37) IU/L ALT (14-63) IU/L Alkaline Phosphatase (46-116) U/L Total Protein (6.4-8.2) g/dL Albumin (3.4-5.0) g/dL Globulin (2.0-3.5) g/dL Albumin/Globulin Ratio (1.3-2.8) 09/13/17 09/13/17 Range/Units 05:15 06:22 WBC (4.0-11.0) K/uL RBC (4.30-5.90) M/uL Hgb (12.0-16.0) g/dL Hct (36.0-46.0) % MCV (80.0-98.0) fL MCH (27.0-32.0) pg MCHC (31.0-37.0) g/dL RDW Std Deviation (28.0-62.0) fl RDW Coeff of Lata (11.0-15.0) % Plt Count (150-400) K/uL MPV (7.40-12.00) fL Neut % (Auto) (48.0-80.0) % Lymph % (Auto) (16.0-40.0) % Stephenson % (Auto) (0.0-15.0) % Eos % (Auto) (0.0-7.0) % Baso % (Auto) (0.0-1.5) % Neut # (Auto) (1.4-5.7) K/uL Lymph # (Auto) (0.6-2.4) K/uL Stephenson # (Auto) (0.0-0.8) K/uL Eos # (Auto) (0.0-0.7) K/uL Baso # (Auto) (0.0-0.1) K/uL Nucleated RBC % /100WBC Nucleated RBCs # K/uL Sodium 135 L (136-145) mmol/L Potassium 6.2 H (3.5-5.1) mmol/L Chloride 101 (98-107) mmol/L Carbon Dioxide 16.4 L (21.0-32.0) mmol/L BUN 77 H (7.0-18.0) mg/dL Creatinine 4.8 H (0.6-1.0) mg/dL Est Cr Clr Drug Dosing 9.81 mL/min Estimated GFR (MDRD) 9.0 ml/min Glucose 151 H (74-106) mg/dL POC Glucose 155 H (60-110) mg/dL Calcium 9.5 (8.5-10.1) mg/dL Magnesium 2.6 H (1.5-2.0) mg/dL Total Bilirubin 1.4 H (0.2-1.0) mg/dL AST 762 H (15-37) IU/L ALT 406 H (14-63) IU/L Alkaline Phosphatase 214 H (46-116) U/L Total Protein 6.3 L (6.4-8.2) g/dL Albumin 3.0 L (3.4-5.0) g/dL Globulin 3.3 (2.0-3.5) g/dL Albumin/Globulin Ratio 0.9 L (1.3-2.8) Med Orders - Current: Current Medications Discontinued Medications Acetaminophen (Tylenol) 650 mg PO Q4H PRN PRN Reason: Pain (Mild 1-3)/fever Last Admin: 09/12/17 10:04 Dose: 650 mg Albuterol/Ipratropium (Duoneb 3.0-0.5 Mg/3 Ml) 3 ml NEB ONETIME ONE Stop: 09/09/17 11:50 Last Admin: 09/09/17 12:16 Dose: 3 ml Albuterol/Ipratropium (Duoneb 3.0-0.5 Mg/3 Ml) 3 ml NEB ONETIME ONE Stop: 09/09/17 11:54 Last Admin: 09/09/17 12:40 Dose: Not Given Albuterol/Ipratropium (Duoneb 3.0-0.5 Mg/3 Ml) 3 ml NEB Q4HRRT PRN PRN Reason: Shortness Of Breath/wheezing Amiodarone HCl (Cordarone) 200 mg PO DAILY [facility] Last Admin: 09/13/17 09:03 Dose: 200 mg Apixaban (Eliquis) 5 mg PO BID [facility] Last Admin: 09/12/17 21:09 Dose: 5 mg Atorvastatin Calcium (Lipitor) 40 mg PO BEDTIME [facility] Last Admin: 09/12/17 21:09 Dose: 40 mg Calcium Gluconate (Calcium Gluconate) 1 gm IV ONETIME ONE Stop: 09/13/17 07:37 Last Admin: 09/13/17 07:51 Dose: 1 gm Dextrose/Water (Dextrose 50% In Water) 50 ml IVPUSH ONETIME ONE Stop: 09/13/17 07:37 Last Admin: 09/13/17 07:59 Dose: 50 ml Fluoxetine HCl (Prozac) 10 mg PO DAILY [facility] Last Admin: 09/11/17 08:58 Dose: 10 mg Fluoxetine HCl (Prozac) 20 mg PO DAILY [facility] Last Admin: 09/12/17 09:39 Dose: 20 mg Fluoxetine HCl (Prozac) 10 mg PO 09/11/17@1630 ONE Stop: 09/11/17 16:31 Last Admin: 09/11/17 16:54 Dose: 10 mg Fluoxetine HCl (Prozac) 40 mg PO DAILY [facility] Last Admin: 09/13/17 09:04 Dose: 40 mg Furosemide (Lasix) 60 mg IVPUSH NOW ONE Stop: 09/09/17 13:24 Last Admin: 09/09/17 14:18 Dose: 60 mg Furosemide (Lasix) 60 mg IVPUSH NOW ONE Stop: 09/10/17 14:12 Last Admin: 09/10/17 14:57 Dose: 60 mg Furosemide (Lasix) 60 mg IVPUSH NOW ONE Stop: 09/11/17 10:06 Last Admin: 09/11/17 10:17 Dose: 60 mg Furosemide (Lasix) 60 mg IVPUSH NOW ONE Stop: 09/11/17 19:52 Last Admin: 09/11/17 21:00 Dose: 60 mg Furosemide (Lasix) 80 mg IVPUSH NOW ONE Stop: 09/12/17 11:22 Last Admin: 09/12/17 12:01 Dose: 80 mg Furosemide (Lasix) 80 mg IVPUSH NOW ONE Stop: 09/12/17 13:27 Last Admin: 09/12/17 14:41 Dose: Not Given Furosemide (Lasix) 80 mg IV ONETIME ONE Stop: 09/12/17 14:01 Last Admin: 09/12/17 14:28 Dose: 80 mg Hydroxyzine Pamoate (Vistaril) 25 mg PO ONETIME ONE Stop: 09/12/17 11:23 Last Admin: 09/12/17 11:59 Dose: 25 mg Hydroxyzine Pamoate (Vistaril) 50 mg PO ONETIME ONE Stop: 09/13/17 08:41 Last Admin: 09/13/17 09:02 Dose: 50 mg Furosemide 100 mg/ Sodium (Chloride) 100 mls @ 10 mls/hr IV TITRATE [facility]; Protocol Furosemide 100 mg/ Sodium (Chloride) 100 mls @ 10 mls/hr IV TITRATE [facility]; Protocol Last Admin: 09/13/17 06:15 Dose: 30 mg/hr, 30 mls/hr Insulin Aspart (Novolog) 5 unit SUBCUT TIDMEALS [facility] Last Admin: 09/13/17 11:55 Dose: Not Given Insulin Detemir (Levemir) 10 unit SUBCUT BEDTIME [facility] Last Admin: 09/12/17 21:11 Dose: 10 units Insulin Human Regular (Novolin R) 10 unit IVPUSH ONETIME ONE; Protocol Stop: 09/13/17 07:38 Last Admin: 09/13/17 08:02 Dose: 10 unit Lorazepam (Ativan) 0.5 mg IVPUSH ONETIME ONE Stop: 09/11/17 10:01 Last Admin: 09/11/17 15:47 Dose: Not Given Metolazone (Zaroxolyn) 2.5 mg PO DAILY [facility] Last Admin: 09/13/17 09:04 Dose: 2.5 mg Metoprolol Succinate (Toprol Xl) 50 mg PO DAILY [facility] Last Admin: 09/13/17 09:03 Dose: 50 mg Ondansetron HCl (Zofran) 4 mg IVPUSH Q4H PRN PRN Reason: Nausea Mexilitine 200 Mg 200 each PO BID [facility] Last Admin: 09/12/17 09:41 Dose: Not Given Mexiletine 200 Mg 1 each PO BID [facility] Last Admin: 09/13/17 09:06 Dose: 1 each Potassium Chloride (Klor-Con M20) 40 meq PO BID [facility] Last Admin: 09/11/17 11:21 Dose: Not Given Potassium Chloride (Klor-Con M20) 40 meq PO DAILY [facility] Last Admin: 09/11/17 15:48 Dose: Not Given Potassium Chloride (Potassium Chloride) 40 meq PO BID [facility] Last Admin: 09/12/17 21:10 Dose: 40 meq Quetiapine Fumarate (Seroquel) 25 mg PO ONETIME ONE Stop: 09/13/17 08:42 Last Admin: 09/13/17 09:04 Dose: 25 mg Quetiapine Fumarate (Seroquel) 50 mg PO BEDTIME [facility] Sodium Polystyrene Sulfonate (Kayexalate) 15 gm PO NOW STA Stop: 09/13/17 07:51 Last Admin: 09/13/17 08:49 Dose: 15 gm Spironolactone (Aldactone) 12.5 mg PO DAILY [facility] Last Admin: 09/12/17 09:39 Dose: 12.5 mg Wound Care/Dressing Products (Duoderm Cgf) 1 each TOP ASDIRECTED ONE Stop: 09/09/17 17:13 Last Admin: 09/09/17 17:36 Dose: 1 each - Exam General: Alert, Oriented HEENT: Pupils Equal Neck: JVD Lungs: Rales Cardiovascular: Regular Rate, Regular Rhythm Extremities: Pedal Edema EKG INTERPRETATION Rhythm: Other (V paced) - Problem List Review Problem List Initiated/Reviewed/Updated: Yes - Plan Plan:: 72-year-old female with history of coronary artery disease, ischemic cardiomyopathy, ejection fraction 25% to 30%; type 2 diabetes; hypertension; and chronic kidney disease, stage 3, in here admitted to the hospital volume overloaded due to decompensated left ventricular systolic dysfunction, possibly also from acute kidney injury on top of chronic kidney disease. 1. LV systolic dysfunction, with acute decompensated systolic CHF, YVES/CKD/ATN oilguric/ hyperkalemia. Will give CaGlu 1 g/ D50/insulin/kayexalate 15 she will need to be transferred to tertiary care center, for possible dialysis. She may need cardiac support such as IABP, and will need to be monitored in the ICU. Due to ATN will stop eliquis for now. - treat hyperkalemia - recommmended transfer to tertiary care center.
--- NOTE | 2017-09-13 22:05 | PCM.DCSUM1 ---
<Sergio Kahn Z - Last Filed: 09/13/17 21:54> Discharge Summary - Hospital Course HPI Initial Comments: Discharge Summary Date of admission: 09/09/2017 Date of discharge: 09/13/2017 Admitting diagnosis: #1. Congestive heart failure requiring diuresis #2. Chronic kidney disease #3. Generalized anxiety Discharge diagnoses: #1. Congestive heart failure with patient resistant to IV Lasix and failing treatment #2. Acute on chronic kidney disease with a sudden worsening of kidney function requiring dialysis with a current creatinine level of 4.8 #3. Nonsymptomatic hyperkalemia #4. Generalized anxiety disorder, major depressive disorder #5. Significant past medical history of atrial fibrillation, pacemaker, coronary artery disease Consultations: Cardiology, psychiatry Procedures: None Hospitalization course: Patient was admitted secondary to worsening congestive heart failure which is primarily of her bilateral lower extremities, she does not appear to have any pulmonary congestion or right-sided heart failure, an echocardiogram did show severe systolic left ventricular function with a reduced ejection fraction, initially patient was given a 60 mg IV dose of Lasix , it appears that the patient did have a moderate response although she did not have this much urine output her creatinine did slightly improve, the decision was made at that time to then increase the dose for the patient to be on 60 mg of IV Lasix twice a day, again creatinine stayed the same poor urine output inadequate response to the diuresis. Along with that the patient started to have shortness of breath every morning however she did not have any refills or indications of congestive heart failure involving the pulmonary architecture and it was thought that this is likely due to her severe anxiety, patient consistently in the morning is having panic attacks in which she becomes short of breath. The patient was on Prozac 10 mg IV on day 2 of admission increase that dose to 20 mg of Prozac in the hopes that this would have a psychological effect of letting the patient know that with the increased medication perhaps she will have better control of her anxiety, this appeared to be slightly effective when reassessed in the a.m. on the third day of admission however after a couple hours of assessment in the morning she once again started to have panic attacks. The patient's Lasix dosage was increased to 80 mg twice a day on 09/11/2017 and again patient showed a very poor response to her Lasix dosage. The patient's creatinine also started to rise from 3.2 to 3.8. Decision was made to increase the Lasix even further and on 09/13 2017 when last process in the morning patient had even worsening creatinine and appeared to go into acute renal failure with a creatinine of 4.8. Patient also had hyperkalemia of 6.2. After assessing the patient in the morning the decision was made that the patient was going to require dialysis, and consultation was made to nephrology in [place], who accepted the patient for immediate dialysis. As well prior to discharge Dr. Potts of psychiatry conducted a telemetry psychiatric evaluation of the patient and determined that the patient had major depressive disorder and anxiety for which she had increased her Prozac to 40 mg daily along with the addition of Seroquel - Discharge Data Discharge Date: 09/13/17 Discharge Disposition: DC/Tfer to Acute Hospital 02 Condition: Good - Discharge Plan Prescriptions/Med Rec: Mexiletine 200 mg PO BID #60 cap Home Medications: Home Meds Acetaminophen [Tylenol Extra Strength] 1,000 mg PO Q6H PRN 09/09/17 [History] Amiodarone [Cordarone] 200 mg PO DAILY 09/09/17 [History] Apixaban [Eliquis] 5 mg PO BID 09/09/17 [History] Bumetanide [Bumex] 2 mg PO BID 09/09/17 [History] Bumetanide [Bumex] 2 mg PO DAILY PRN 09/09/17 [History] Insulin Aspart [Novolog Flexpen] 5 unit SUBCUT TIDMEALS 09/09/17 [History] Insulin Detemir [Levemir Flextouch] 10 unit SUBCUT BEDTIME 09/09/17 [History] Metoprolol Succinate [Toprol XL 50mg] 50 mg PO DAILY 09/09/17 [History] Nitroglycerin 0.4 mg SL .EVERY 5 MINUTES PRN MDD 3 09/09/17 [History] Spironolactone [Aldactone] 12.5 mg PO DAILY 09/09/17 [History] atorvaSTATin [Lipitor] 40 mg PO BEDTIME 09/09/17 [History] Mexiletine 200 mg PO BID #60 cap 09/12/17 [Rx] Patient Handouts: Heart Failure, [id number] Referrals: Esau Strickland MD [Ordering Only Provider] - - Discharge Summary/Plan Comment DC Time >30 min.: No - Patient Data Vitals - Most Recent: Last Vital Signs Temp 36.3 C 09/13/17 11:35 Pulse 90 09/13/17 11:35 Resp 27 H 09/13/17 11:35 BP 95/50 L 09/13/17 11:35 Pulse Ox 98 09/13/17 11:35 Weight - Most Recent: 112.5 kg I&O - Last 24 hours: Intake & Output 09/13/17 09/13/17 09/13/17 06:59 14:59 22:59 Intake Total 200 954 Output Total 40 180 Balance 160 774 Lab Results - Last 24 hrs: Laboratory Results - last 24 hr 09/12/17 09/13/17 09/13/17 Range/Units 21:08 05:15 05:15 WBC 12.83 H (4.0-11.0) K/uL RBC 5.55 (4.30-5.90) M/uL Hgb 13.6 (12.0-16.0) g/dL Hct 42.6 (36.0-46.0) % MCV 76.8 L (80.0-98.0) fL MCH 24.5 L (27.0-32.0) pg MCHC 31.9 (31.0-37.0) g/dL RDW Std Deviation 56.8 (28.0-62.0) fl RDW Coeff of Lata 22 H (11.0-15.0) % Plt Count 262 (150-400) K/uL MPV 10.60 (7.40-12.00) fL Neut % (Auto) 83.6 H (48.0-80.0) % Lymph % (Auto) 8.2 L (16.0-40.0) % [place] % (Auto) 8.0 (0.0-15.0) % Eos % (Auto) 0.1 (0.0-7.0) % Baso % (Auto) 0.1 (0.0-1.5) % Neut # (Auto) 10.7 H (1.4-5.7) K/uL Lymph # (Auto) 1.1 (0.6-2.4) K/uL [place] # (Auto) 1.0 H (0.0-0.8) K/uL Eos # (Auto) 0.0 (0.0-0.7) K/uL Baso # (Auto) 0.0 (0.0-0.1) K/uL Nucleated RBC % 0.5 /100WBC Nucleated RBCs # 0 K/uL Sodium 135 L (136-145) mmol/L Potassium 6.2 H (3.5-5.1) mmol/L Chloride 101 (98-107) mmol/L Carbon Dioxide 16.4 L (21.0-32.0) mmol/L BUN 77 H (7.0-18.0) mg/dL Creatinine 4.8 H (0.6-1.0) mg/dL Est Cr Clr Drug Dosing 9.81 mL/min Estimated GFR (MDRD) 9.0 ml/min Glucose 151 H (74-106) mg/dL POC Glucose 146 H (60-110) mg/dL Calcium 9.5 (8.5-10.1) mg/dL Magnesium 2.6 H (1.5-2.0) mg/dL Total Bilirubin 1.4 H (0.2-1.0) mg/dL AST 762 H (15-37) IU/L ALT 406 H (14-63) IU/L Alkaline Phosphatase 214 H (46-116) U/L Total Protein 6.3 L (6.4-8.2) g/dL Albumin 3.0 L (3.4-5.0) g/dL Globulin 3.3 (2.0-3.5) g/dL Albumin/Globulin Ratio 0.9 L (1.3-2.8) 09/13/17 09/13/17 Range/Units 06:22 11:41 WBC (4.0-11.0) K/uL RBC (4.30-5.90) M/uL Hgb (12.0-16.0) g/dL Hct (36.0-46.0) % MCV (80.0-98.0) fL MCH (27.0-32.0) pg MCHC (31.0-37.0) g/dL RDW Std Deviation (28.0-62.0) fl RDW Coeff of Lata (11.0-15.0) % Plt Count (150-400) K/uL MPV (7.40-12.00) fL Neut % (Auto) (48.0-80.0) % Lymph % (Auto) (16.0-40.0) % [place] % (Auto) (0.0-15.0) % Eos % (Auto) (0.0-7.0) % Baso % (Auto) (0.0-1.5) % Neut # (Auto) (1.4-5.7) K/uL Lymph # (Auto) (0.6-2.4) K/uL [place] # (Auto) (0.0-0.8) K/uL Eos # (Auto) (0.0-0.7) K/uL Baso # (Auto) (0.0-0.1) K/uL Nucleated RBC % /100WBC Nucleated RBCs # K/uL Sodium (136-145) mmol/L Potassium (3.5-5.1) mmol/L Chloride (98-107) mmol/L Carbon Dioxide (21.0-32.0) mmol/L BUN (7.0-18.0) mg/dL Creatinine (0.6-1.0) mg/dL Est Cr Clr Drug Dosing mL/min Estimated GFR (MDRD) ml/min Glucose (74-106) mg/dL POC Glucose 155 H 159 H (60-110) mg/dL Calcium (8.5-10.1) mg/dL Magnesium (1.5-2.0) mg/dL Total Bilirubin (0.2-1.0) mg/dL AST (15-37) IU/L ALT (14-63) IU/L Alkaline Phosphatase (46-116) U/L Total Protein (6.4-8.2) g/dL Albumin (3.4-5.0) g/dL Globulin (2.0-3.5) g/dL Albumin/Globulin Ratio (1.3-2.8) Med Orders - Current: Current Medications Discontinued Medications Acetaminophen (Tylenol) 650 mg PO Q4H PRN PRN Reason: Pain (Mild 1-3)/fever Last Admin: 09/12/17 10:04 Dose: 650 mg Albuterol/Ipratropium (Duoneb 3.0-0.5 Mg/3 Ml) 3 ml NEB ONETIME ONE Stop: 09/09/17 11:50 Last Admin: 09/09/17 12:16 Dose: 3 ml Albuterol/Ipratropium (Duoneb 3.0-0.5 Mg/3 Ml) 3 ml NEB ONETIME ONE Stop: 09/09/17 11:54 Last Admin: 09/09/17 12:40 Dose: Not Given Albuterol/Ipratropium (Duoneb 3.0-0.5 Mg/3 Ml) 3 ml NEB Q4HRRT PRN PRN Reason: Shortness Of Breath/wheezing Amiodarone HCl (Cordarone) 200 mg PO DAILY [facility] Last Admin: 09/13/17 09:03 Dose: 200 mg Apixaban (Eliquis) 5 mg PO BID [facility] Last Admin: 09/12/17 21:09 Dose: 5 mg Atorvastatin Calcium (Lipitor) 40 mg PO BEDTIME [facility] Last Admin: 09/12/17 21:09 Dose: 40 mg Calcium Gluconate (Calcium Gluconate) 1 gm IV ONETIME ONE Stop: 09/13/17 07:37 Last Admin: 09/13/17 07:51 Dose: 1 gm Dextrose/Water (Dextrose 50% In Water) 50 ml IVPUSH ONETIME ONE Stop: 09/13/17 07:37 Last Admin: 09/13/17 07:59 Dose: 50 ml Fluoxetine HCl (Prozac) 10 mg PO DAILY [facility] Last Admin: 09/11/17 08:58 Dose: 10 mg Fluoxetine HCl (Prozac) 20 mg PO DAILY [facility] Last Admin: 09/12/17 09:39 Dose: 20 mg Fluoxetine HCl (Prozac) 10 mg PO 09/11/17@1630 ONE Stop: 09/11/17 16:31 Last Admin: 09/11/17 16:54 Dose: 10 mg Fluoxetine HCl (Prozac) 40 mg PO DAILY [facility] Last Admin: 09/13/17 09:04 Dose: 40 mg Furosemide (Lasix) 60 mg IVPUSH NOW ONE Stop: 09/09/17 13:24 Last Admin: 09/09/17 14:18 Dose: 60 mg Furosemide (Lasix) 60 mg IVPUSH NOW ONE Stop: 09/10/17 14:12 Last Admin: 09/10/17 14:57 Dose: 60 mg Furosemide (Lasix) 60 mg IVPUSH NOW ONE Stop: 09/11/17 10:06 Last Admin: 09/11/17 10:17 Dose: 60 mg Furosemide (Lasix) 60 mg IVPUSH NOW ONE Stop: 09/11/17 19:52 Last Admin: 09/11/17 21:00 Dose: 60 mg Furosemide (Lasix) 80 mg IVPUSH NOW ONE Stop: 09/12/17 11:22 Last Admin: 09/12/17 12:01 Dose: 80 mg Furosemide (Lasix) 80 mg IVPUSH NOW ONE Stop: 09/12/17 13:27 Last Admin: 09/12/17 14:41 Dose: Not Given Furosemide (Lasix) 80 mg IV ONETIME ONE Stop: 09/12/17 14:01 Last Admin: 09/12/17 14:28 Dose: 80 mg Hydroxyzine Pamoate (Vistaril) 25 mg PO ONETIME ONE Stop: 09/12/17 11:23 Last Admin: 09/12/17 11:59 Dose: 25 mg Hydroxyzine Pamoate (Vistaril) 50 mg PO ONETIME ONE Stop: 09/13/17 08:41 Last Admin: 09/13/17 09:02 Dose: 50 mg Furosemide 100 mg/ Sodium (Chloride) 100 mls @ 10 mls/hr IV TITRATE [facility]; Protocol Furosemide 100 mg/ Sodium (Chloride) 100 mls @ 10 mls/hr IV TITRATE [facility]; Protocol Last Admin: 09/13/17 06:15 Dose: 30 mg/hr, 30 mls/hr Insulin Aspart (Novolog) 5 unit SUBCUT TIDMEALS [facility] Last Admin: 09/13/17 11:55 Dose: Not Given Insulin Detemir (Levemir) 10 unit SUBCUT BEDTIME [facility] Last Admin: 09/12/17 21:11 Dose: 10 units Insulin Human Regular (Novolin R) 10 unit IVPUSH ONETIME ONE; Protocol Stop: 09/13/17 07:38 Last Admin: 09/13/17 08:02 Dose: 10 unit Lorazepam (Ativan) 0.5 mg IVPUSH ONETIME ONE Stop: 09/11/17 10:01 Last Admin: 09/11/17 15:47 Dose: Not Given Metolazone (Zaroxolyn) 2.5 mg PO DAILY [facility] Last Admin: 09/13/17 09:04 Dose: 2.5 mg Metoprolol Succinate (Toprol Xl) 50 mg PO DAILY [facility] Last Admin: 09/13/17 09:03 Dose: 50 mg Ondansetron HCl (Zofran) 4 mg IVPUSH Q4H PRN PRN Reason: Nausea Mexilitine 200 Mg 200 each PO BID [facility] Last Admin: 09/12/17 09:41 Dose: Not Given Mexiletine 200 Mg 1 each PO BID [facility] Last Admin: 09/13/17 09:06 Dose: 1 each Potassium Chloride (Klor-Con M20) 40 meq PO BID [facility] Last Admin: 09/11/17 11:21 Dose: Not Given Potassium Chloride (Klor-Con M20) 40 meq PO DAILY [facility] Last Admin: 09/11/17 15:48 Dose: Not Given Potassium Chloride (Potassium Chloride) 40 meq PO BID [facility] Last Admin: 09/12/17 21:10 Dose: 40 meq Quetiapine Fumarate (Seroquel) 25 mg PO ONETIME ONE Stop: 09/13/17 08:42 Last Admin: 09/13/17 09:04 Dose: 25 mg Quetiapine Fumarate (Seroquel) 50 mg PO BEDTIME [facility] Sodium Polystyrene Sulfonate (Kayexalate) 15 gm PO NOW STA Stop: 09/13/17 07:51 Last Admin: 09/13/17 08:49 Dose: 15 gm Spironolactone (Aldactone) 12.5 mg PO DAILY [facility] Last Admin: 09/12/17 09:39 Dose: 12.5 mg Wound Care/Dressing Products (Duoderm Cgf) 1 each TOP ASDIRECTED ONE Stop: 09/09/17 17:13 Last Admin: 09/09/17 17:36 Dose: 1 each <Rodger Tobar J - Last Filed: 09/14/17 14:31> - Patient Data Vitals - Most Recent: Last Vital Signs Temp 36.3 C 09/13/17 11:35 Pulse 90 09/13/17 11:35 Resp 27 H 09/13/17 11:35 BP 95/50 L 09/13/17 11:35 Pulse Ox 98 09/13/17 11:35 Lab Results - Last 24 hrs: Laboratory Results - last 24 hr 09/13/17 Range/Units 11:41 POC Glucose 159 H (60-110) mg/dL Med Orders - Current: Current Medications Discontinued Medications Acetaminophen (Tylenol) 650 mg PO Q4H PRN PRN Reason: Pain (Mild 1-3)/fever Last Admin: 09/12/17 10:04 Dose: 650 mg Albuterol/Ipratropium (Duoneb 3.0-0.5 Mg/3 Ml) 3 ml NEB ONETIME ONE Stop: 09/09/17 11:50 Last Admin: 09/09/17 12:16 Dose: 3 ml Albuterol/Ipratropium (Duoneb 3.0-0.5 Mg/3 Ml) 3 ml NEB ONETIME ONE Stop: 09/09/17 11:54 Last Admin: 09/09/17 12:40 Dose: Not Given Albuterol/Ipratropium (Duoneb 3.0-0.5 Mg/3 Ml) 3 ml NEB Q4HRRT PRN PRN Reason: Shortness Of Breath/wheezing Amiodarone HCl (Cordarone) 200 mg PO DAILY [facility] Last Admin: 09/13/17 09:03 Dose: 200 mg Apixaban (Eliquis) 5 mg PO BID [facility] Last Admin: 09/12/17 21:09 Dose: 5 mg Atorvastatin Calcium (Lipitor) 40 mg PO BEDTIME [facility] Last Admin: 09/12/17 21:09 Dose: 40 mg Calcium Gluconate (Calcium Gluconate) 1 gm IV ONETIME ONE Stop: 09/13/17 07:37 Last Admin: 09/13/17 07:51 Dose: 1 gm Dextrose/Water (Dextrose 50% In Water) 50 ml IVPUSH ONETIME ONE Stop: 09/13/17 07:37 Last Admin: 09/13/17 07:59 Dose: 50 ml Fluoxetine HCl (Prozac) 10 mg PO DAILY [facility] Last Admin: 09/11/17 08:58 Dose: 10 mg Fluoxetine HCl (Prozac) 20 mg PO DAILY [facility] Last Admin: 09/12/17 09:39 Dose: 20 mg Fluoxetine HCl (Prozac) 10 mg PO 09/11/17@1630 ONE Stop: 09/11/17 16:31 Last Admin: 09/11/17 16:54 Dose: 10 mg Fluoxetine HCl (Prozac) 40 mg PO DAILY [facility] Last Admin: 09/13/17 09:04 Dose: 40 mg Furosemide (Lasix) 60 mg IVPUSH NOW ONE Stop: 09/09/17 13:24 Last Admin: 09/09/17 14:18 Dose: 60 mg Furosemide (Lasix) 60 mg IVPUSH NOW ONE Stop: 09/10/17 14:12 Last Admin: 09/10/17 14:57 Dose: 60 mg Furosemide (Lasix) 60 mg IVPUSH NOW ONE Stop: 09/11/17 10:06 Last Admin: 09/11/17 10:17 Dose: 60 mg Furosemide (Lasix) 60 mg IVPUSH NOW ONE Stop: 09/11/17 19:52 Last Admin: 09/11/17 21:00 Dose: 60 mg Furosemide (Lasix) 80 mg IVPUSH NOW ONE Stop: 09/12/17 11:22 Last Admin: 09/12/17 12:01 Dose: 80 mg Furosemide (Lasix) 80 mg IVPUSH NOW ONE Stop: 09/12/17 13:27 Last Admin: 09/12/17 14:41 Dose: Not Given Furosemide (Lasix) 80 mg IV ONETIME ONE Stop: 09/12/17 14:01 Last Admin: 09/12/17 14:28 Dose: 80 mg Hydroxyzine Pamoate (Vistaril) 25 mg PO ONETIME ONE Stop: 09/12/17 11:23 Last Admin: 09/12/17 11:59 Dose: 25 mg Hydroxyzine Pamoate (Vistaril) 50 mg PO ONETIME ONE Stop: 09/13/17 08:41 Last Admin: 09/13/17 09:02 Dose: 50 mg Furosemide 100 mg/ Sodium (Chloride) 100 mls @ 10 mls/hr IV TITRATE [facility]; Protocol Furosemide 100 mg/ Sodium (Chloride) 100 mls @ 10 mls/hr IV TITRATE [facility]; Protocol Last Admin: 09/13/17 06:15 Dose: 30 mg/hr, 30 mls/hr Insulin Aspart (Novolog) 5 unit SUBCUT TIDMEALS [facility] Last Admin: 09/13/17 11:55 Dose: Not Given Insulin Detemir (Levemir) 10 unit SUBCUT BEDTIME [facility] Last Admin: 09/12/17 21:11 Dose: 10 units Insulin Human Regular (Novolin R) 10 unit IVPUSH ONETIME ONE; Protocol Stop: 09/13/17 07:38 Last Admin: 09/13/17 08:02 Dose: 10 unit Lorazepam (Ativan) 0.5 mg IVPUSH ONETIME ONE Stop: 09/11/17 10:01 Last Admin: 09/11/17 15:47 Dose: Not Given Metolazone (Zaroxolyn) 2.5 mg PO DAILY [facility] Last Admin: 09/13/17 09:04 Dose: 2.5 mg Metoprolol Succinate (Toprol Xl) 50 mg PO DAILY [facility] Last Admin: 09/13/17 09:03 Dose: 50 mg Ondansetron HCl (Zofran) 4 mg IVPUSH Q4H PRN PRN Reason: Nausea Mexilitine 200 Mg 200 each PO BID [facility] Last Admin: 09/12/17 09:41 Dose: Not Given Mexiletine 200 Mg 1 each PO BID [facility] Last Admin: 09/13/17 09:06 Dose: 1 each Potassium Chloride (Klor-Con M20) 40 meq PO BID [facility] Last Admin: 09/11/17 11:21 Dose: Not Given Potassium Chloride (Klor-Con M20) 40 meq PO DAILY [facility] Last Admin: 09/11/17 15:48 Dose: Not Given Potassium Chloride (Potassium Chloride) 40 meq PO BID [facility] Last Admin: 09/12/17 21:10 Dose: 40 meq Quetiapine Fumarate (Seroquel) 25 mg PO ONETIME ONE Stop: 09/13/17 08:42 Last Admin: 09/13/17 09:04 Dose: 25 mg Quetiapine Fumarate (Seroquel) 50 mg PO BEDTIME [facility] Sodium Polystyrene Sulfonate (Kayexalate) 15 gm PO NOW STA Stop: 09/13/17 07:51 Last Admin: 09/13/17 08:49 Dose: 15 gm Spironolactone (Aldactone) 12.5 mg PO DAILY [facility] Last Admin: 09/12/17 09:39 Dose: 12.5 mg Wound Care/Dressing Products (Duoderm Cgf) 1 each TOP ASDIRECTED ONE Stop: 09/09/17 17:13 Last Admin: 09/09/17 17:36 Dose: 1 each - Free Text/Narrative Note: I have examined the patient. I have discussed findings and treatment plan with the resident. I agree with the assessment and plan outlined in the following resident's note.
== END 2017-09-13 13:10 | DRG 291 ==
LOC: MW.ED 11:46 → MW.MS 13:21 → OBSVTOIN 09-11 12:16
PROVIDERS: ADMIT Internal Medicine; ATTEND Internal Medicine
DX: I11.0 Hypertensive heart disease with heart failure (principal); I50.9 Heart failure, unspecified; Z95.0 Presence of cardiac pacemaker; I13.0 Hypertensive heart and chronic kidney disease with heart failure and stage 1 through stage 4 chronic kidney disease, or unspecified chronic kidney disease; I50.23 Acute on chronic systolic (congestive) heart failure; N17.0 Acute kidney failure with tubular necrosis; Z68.41 Body mass index [BMI] 40.0-44.9, adult; E11.9 Type 2 diabetes mellitus without complications; I99.9 Unspecified disorder of circulatory system; L89.319 Pressure ulcer of right buttock, unspecified stage; R79.1 Abnormal coagulation profile; E11.22 Type 2 diabetes mellitus with diabetic chronic kidney disease; F41.1 Generalized anxiety disorder; F32.9 Major depressive disorder, single episode, unspecified; E87.5 Hyperkalemia; I48.91 Unspecified atrial fibrillation; I25.10 Atherosclerotic heart disease of native coronary artery without angina pectoris; F41.0 Panic disorder [episodic paroxysmal anxiety]; E66.01 Morbid (severe) obesity due to excess calories; N18.3 Chronic kidney disease, stage 3 (moderate); I25.5 Ischemic cardiomyopathy; R42 Dizziness and giddiness; R53.1 Weakness; R53.83 Other fatigue; Z98.61 Coronary angioplasty status; Z79.01 Long term (current) use of anticoagulants; Z79.4 Long term (current) use of insulin; Z95.810 Presence of automatic (implantable) cardiac defibrillator; Z90.49 Acquired absence of other specified parts of digestive tract; Z79.899 Other long term (current) drug therapy
CPT/HCPCS: 36415 ×3; 71045; 80048 ×2; 80053; 82962 ×8; 83880; 84484; 85025 ×3; 85379; 93005; 93306; 94640; 99285; A9270 ×14; J1815 ×2; J1940 ×3; 51702; 83735; 96374; 96376; G0378; J0610; J7030; J7060